=== PATIENT | male | born 1960 | race African-American/Black ===

== ENCOUNTER 2021-10-15 19:01 | Inpatient (IN) | payer SELFPAY ==
[~2021-10-15] VITALS: Ht 172.7 cm; Wt 121.5 kg
[2021-10-15 19:31] LABS: BASO % 0.4 % (0.0-1.0); EOS # 0.1 10^3/uL (0.0-0.5); EOS % 1.2 % (0.0-3.0); HEMATOCRIT 45.4 % (42.0-52.0); HEMOGLOBIN 14.8 g/dl (13.5-17.5); LYMPH # 3.7 10^3/uL (1.5-5.0); LYMPH % 38.6 % (24.0-44.0); MEAN CORPUSCULAR HEMOGLOBIN 26.5 pg (27.0-33.0); MEAN CORPUSCULAR HGB CONC 32.6 g/dl (32.0-36.5); MEAN CORPUSCULAR VOLUME 81.4 fl (80.0-96.0); MONO % 10.5 % (2.0-8.0); NEUTROPHILS # 4.6 10^3/uL (1.5-8.5); NEUTROPHILS % 49.1 % (36.0-66.0); PLATELET COUNT, AUTOMATED 227 10^3/uL (150-450); RED BLOOD COUNT 5.58 10^6/uL (4.30-6.10); WHITE BLOOD COUNT 9.5 10^3/uL (4.0-10.0)
[2021-10-15] MEDS ORDERED: ISOVUE-370 76% 100ML VIAL As Ordered ONE (19:38)
[2021-10-15] MEDS ORDERED: THERTAB52 PO (19:40)
[2021-10-15 19:53] LABS: CK-MB VALUE MASS < 1.0 NG/ML (<3.6); CPK CREATINE PHOSPHOKINASE 35 U/L (39-308); MB/CK RELATIVE INDEX 2.86 (< OR =4)
[2021-10-15 20:14] LABS: ALBUMIN 3.3 GM/DL (3.2-5.2); ALT/SGPT 32 U/L (12-78); BILIRUBIN,TOTAL 0.6 MG/DL (0.2-1.0); BLOOD UREA NITROGEN 17 MG/DL (7-18); CALCIUM LEVEL 8.9 MG/DL (8.8-10.2); CARBON DIOXIDE LEVEL 25 MEQ/L (21-32); CHLORIDE LEVEL 106 MEQ/L (98-107); FREE T4 3.03 NG/DL (0.76-1.46); GLOMERULAR FILTRATION RATE > 60.0 (>49); GLUCOSE, FASTING 98 MG/DL (70-100); LIPASE 50 U/L (73-393); SODIUM LEVEL 140 MEQ/L (136-145); THYROID STIMULATING HORMONE < 0.005 uIU/ML (0.358-3.740); TOTAL PROTEIN 7.1 GM/DL (6.4-8.2)
[2021-10-15] MEDS ORDERED: SIMVASTATIN 40 MG TAB PO ONE (21:30)
[2021-10-15] MEDS ORDERED: ASPIRIN 81 MG CHEW TABLET PO ONE (21:30)
[2021-10-15] MEDS ORDERED: HOME MED LIST COMPLETE! XX SCH (22:55)
[2021-10-16] VITALS (26 sets, daily range): BP systolic 135–193; BP diastolic 65–96; O2SAT 96–99
[2021-10-16] MEDS ORDERED: OLANZapine INTRAMUSCULAR 10MG VIAL IM ONE
[2021-10-16 02:35] LABS: BASO % 0.3 % (0.0-1.0); EOS # 0.1 10^3/uL (0.0-0.5); EOS % 0.6 % (0.0-3.0); HEMATOCRIT 44.1 % (42.0-52.0); HEMOGLOBIN 14.3 g/dl (13.5-17.5); LYMPH # 1.5 10^3/uL (1.5-5.0); LYMPH % 18.7 % (24.0-44.0); MEAN CORPUSCULAR HEMOGLOBIN 26.2 pg (27.0-33.0); MEAN CORPUSCULAR HGB CONC 32.4 g/dl (32.0-36.5); MEAN CORPUSCULAR VOLUME 80.9 fl (80.0-96.0); MONO # 0.7 10^3/uL (0.0-0.8); MONO % 8.7 % (2.0-8.0); NEUTROPHILS # 5.6 10^3/uL (1.5-8.5); NEUTROPHILS % 71.3 % (36.0-66.0); PLATELET COUNT, AUTOMATED 209 10^3/uL (150-450); RED BLOOD COUNT 5.45 10^6/uL (4.30-6.10); WHITE BLOOD COUNT 7.8 10^3/uL (4.0-10.0)
[2021-10-16 02:49] LABS: INR 1.14
[2021-10-16 02:50] LABS: PARTIAL THROMBOPLASTIN TIME 35.5 SECONDS (25.9-37.0)
[2021-10-16 03:05] LABS: CK-MB VALUE MASS < 1.0 NG/ML (<3.6); CPK CREATINE PHOSPHOKINASE 46 U/L (39-308); MB/CK RELATIVE INDEX 2.17 (< OR =4)
[2021-10-16 03:17] LABS: ALBUMIN 3.2 GM/DL (3.2-5.2); ALT/SGPT 27 U/L (12-78); BILIRUBIN,DIRECT 0.2 MG/DL (0.0-0.2); BILIRUBIN,TOTAL 0.7 MG/DL (0.2-1.0); BLOOD UREA NITROGEN 15 MG/DL (7-18); CALCIUM LEVEL 8.9 MG/DL (8.8-10.2); CARBON DIOXIDE LEVEL 26 MEQ/L (21-32); CHLORIDE LEVEL 110 MEQ/L (98-107); CHOLESTEROL LEVEL 124 MG/DL (<200); CHOLESTEROL RISK RATIO 2.638 (<5); CREATININE FOR GFR 0.44 MG/DL (0.70-1.30); GLOMERULAR FILTRATION RATE > 60.0 (>49); GLUCOSE, FASTING 112 MG/DL (70-100); HDL CHOLESTEROL 47 MG/DL (>40); LDL CHOLESTEROL 68 MG/DL (<100); NON-HDL-C 77 MG/DL; POTASSIUM SERUM 4.2 MEQ/L (3.5-5.1); SODIUM LEVEL 143 MEQ/L (136-145); TOTAL PROTEIN 6.9 GM/DL (6.4-8.2); TRIGLYCERIDES LEVEL 43 MG/DL (<150)
[2021-10-16 06:40] LABS: BASO % 0.3 % (0.0-1.0); EOS # 0.1 10^3/uL (0.0-0.5); EOS % 0.8 % (0.0-3.0); HEMATOCRIT 45.4 % (42.0-52.0); HEMOGLOBIN 14.7 g/dl (13.5-17.5); LYMPH # 1.8 10^3/uL (1.5-5.0); LYMPH % 24.7 % (24.0-44.0); MEAN CORPUSCULAR HEMOGLOBIN 26.7 pg (27.0-33.0); MEAN CORPUSCULAR HGB CONC 32.4 g/dl (32.0-36.5); MEAN CORPUSCULAR VOLUME 82.5 fl (80.0-96.0); MONO # 0.8 10^3/uL (0.0-0.8); MONO % 10.6 % (2.0-8.0); NEUTROPHILS # 4.6 10^3/uL (1.5-8.5); NEUTROPHILS % 63.2 % (36.0-66.0); WHITE BLOOD COUNT 7.3 10^3/uL (4.0-10.0)
[2021-10-16 07:35] LABS: PLATELET COUNT, AUTOMATED 180 10^3/uL (150-450)
[2021-10-16 07:42] LABS: ALT/SGPT 29 U/L (12-78); BILIRUBIN,TOTAL 0.7 MG/DL (0.2-1.0); BLOOD UREA NITROGEN 15 MG/DL (7-18); CALCIUM LEVEL 9.5 MG/DL (8.8-10.2); CARBON DIOXIDE LEVEL 23 MEQ/L (21-32); CHLORIDE LEVEL 110 MEQ/L (98-107); CREATININE FOR GFR 0.46 MG/DL (0.70-1.30); GLOMERULAR FILTRATION RATE > 60.0 (>49); GLUCOSE, FASTING 100 MG/DL (70-100); POTASSIUM SERUM 3.7 MEQ/L (3.5-5.1); SODIUM LEVEL 141 MEQ/L (136-145); T UPTAKE 43 % (33-40); TOTAL PROTEIN 7.2 GM/DL (6.4-8.2)
[2021-10-16 07:43] LABS: THYROID STIMULATING HORMONE < 0.005 uIU/ML (0.358-3.740); THYROXINE (T4) > 24.0 UG/DL (4.5-12.0)
[2021-10-16] MEDS: ASPIRIN 300 MG SUPP PR SCH (08:58)
[2021-10-16] MEDS: HEPARIN SOD (PORCINE) 5000UNITS/ML 1ML VIAL/SYRINGE SQ SCH ×2 (08:58→21:13)
[2021-10-16] MEDS ORDERED: ASPIRIN 300 MG SUPP PR SCH (09:00)
[2021-10-16] MEDS ORDERED: ASPIRIN 81 MG CHEW TABLET PO SCH (09:00)
[2021-10-16] MEDS: NS 1,000 ML IV SCH ×2 (10:02→21:13)
[2021-10-16] MEDS ORDERED: ATORVASTATIN 20 MG TAB PO SCH (21:00)
[2021-10-17] VITALS (13 sets, daily range): BP systolic 135–200; BP diastolic 69–125; O2SAT 96–97
[2021-10-17 06:02] LABS: BASO % 0.1 % (0.0-1.0); EOS # 0.1 10^3/uL (0.0-0.5); EOS % 0.6 % (0.0-3.0); HEMATOCRIT 45.1 % (42.0-52.0); HEMOGLOBIN 14.4 g/dl (13.5-17.5); LYMPH # 1.8 10^3/uL (1.5-5.0); LYMPH % 22.7 % (24.0-44.0); MEAN CORPUSCULAR HEMOGLOBIN 25.7 pg (27.0-33.0); MEAN CORPUSCULAR HGB CONC 31.9 g/dl (32.0-36.5); MEAN CORPUSCULAR VOLUME 80.5 fl (80.0-96.0); MONO # 0.8 10^3/uL (0.0-0.8); MONO % 10.4 % (2.0-8.0); NEUTROPHILS # 5.3 10^3/uL (1.5-8.5); PLATELET COUNT, AUTOMATED 230 10^3/uL (150-450)
[2021-10-17 06:32] LABS: ALBUMIN 3.1 GM/DL (3.2-5.2); ALT/SGPT 29 U/L (12-78); BLOOD UREA NITROGEN 12 MG/DL (7-18); CALCIUM LEVEL 9.3 MG/DL (8.8-10.2); CARBON DIOXIDE LEVEL 22 MEQ/L (21-32); CHLORIDE LEVEL 106 MEQ/L (98-107); FREE T3 8.7 PG/ML (2.2-4.0); FREE T4 3.86 NG/DL (0.76-1.46); GLOMERULAR FILTRATION RATE > 60.0 (>49); GLUCOSE, FASTING 97 MG/DL (70-100); POTASSIUM SERUM 4.1 MEQ/L (3.5-5.1); SODIUM LEVEL 138 MEQ/L (136-145); THYROID STIMULATING HORMONE < 0.005 uIU/ML (0.358-3.740)
[2021-10-17 06:44] LABS: HEMOGLOBIN A1c 5.9 %
[2021-10-17] MEDS: NS 1,000 ML IV SCH ×2 (08:07→20:01)
[2021-10-17] MEDS: HEPARIN SOD (PORCINE) 5000UNITS/ML 1ML VIAL/SYRINGE SQ SCH ×2 (09:39→20:04)
[2021-10-17] MEDS: ASPIRIN 300 MG SUPP PR SCH (09:40)
[2021-10-18] VITALS (15 sets, daily range): BP systolic 140–176; BP diastolic 60–92; O2SAT 96–99
[2021-10-18] MEDS: NS 1,000 ML IV SCH ×3 (00:54→15:53)
[2021-10-18 05:54] LABS: BASO % 0.3 % (0.0-1.0); EOS # 0.1 10^3/uL (0.0-0.5); EOS % 0.6 % (0.0-3.0); HEMATOCRIT 46.7 % (42.0-52.0); HEMOGLOBIN 15.5 g/dl (13.5-17.5); LYMPH # 2.3 10^3/uL (1.5-5.0); LYMPH % 26.4 % (24.0-44.0); MEAN CORPUSCULAR HEMOGLOBIN 26.1 pg (27.0-33.0); MEAN CORPUSCULAR HGB CONC 33.2 g/dl (32.0-36.5); MEAN CORPUSCULAR VOLUME 78.8 fl (80.0-96.0); MONO % 11.5 % (2.0-8.0); NEUTROPHILS # 5.3 10^3/uL (1.5-8.5); NEUTROPHILS % 60.7 % (36.0-66.0); PLATELET COUNT, AUTOMATED 233 10^3/uL (150-450); RED BLOOD COUNT 5.93 10^6/uL (4.30-6.10); WHITE BLOOD COUNT 8.7 10^3/uL (4.0-10.0)
[2021-10-18 06:26] LABS: ALBUMIN 3.1 GM/DL (3.2-5.2); ALT/SGPT 29 U/L (12-78); BLOOD UREA NITROGEN 12 MG/DL (7-18); CALCIUM LEVEL 9.8 MG/DL (8.8-10.2); CARBON DIOXIDE LEVEL 24 MEQ/L (21-32); CHLORIDE LEVEL 102 MEQ/L (98-107); CREATININE FOR GFR 0.48 MG/DL (0.70-1.30); GLOMERULAR FILTRATION RATE > 60.0 (>49); GLUCOSE, FASTING 97 MG/DL (70-100); POTASSIUM SERUM 3.9 MEQ/L (3.5-5.1); SODIUM LEVEL 136 MEQ/L (136-145); TOTAL PROTEIN 7.8 GM/DL (6.4-8.2)
[2021-10-18] MEDS ORDERED: VARIBAR NECTAR 40% w/v 240ML SUSP BTL As Ordered ONE (09:51)
[2021-10-18] MEDS ORDERED: VARIBAR PUDDING 40% w/v 230ML TUBE As Ordered ONE (09:51)
[2021-10-18] MEDS ORDERED: E-Z-PAQUE 96% w/w SUSP 176GM BTL As Ordered ONE (09:51)
[2021-10-18] MEDS ORDERED: BARIUM SULFATE 700 MG TABLET (E-Z-DISK) As Ordered ONE (09:52)
[2021-10-18] MEDS: ASPIRIN 300 MG SUPP PR SCH (09:55)
[2021-10-18] MEDS: HEPARIN SOD (PORCINE) 5000UNITS/ML 1ML VIAL/SYRINGE SQ SCH (09:55)
[2021-10-18] MEDS: METOPROLOL TART 25 MG TABLET PO SCH ×2 (15:00→20:36)
[2021-10-18] MEDS: ENOXAPARIN 100MG/1ML SYRINGE (J1650 PER 10MG) SC SCH (20:35)
[2021-10-19] VITALS (25 sets, daily range): BP systolic 151–165; BP diastolic 79–93; O2SAT 89–100
[2021-10-19] MEDS: NS 1,000 ML IV SCH ×4 (02:05→23:48)
[2021-10-19] MEDS ORDERED: OLANZapine 5 MG TAB PO ONE (04:00)
[2021-10-19 06:42] LABS: BASO % 0.4 % (0.0-1.0); EOS # 0.1 10^3/uL (0.0-0.5); EOS % 0.9 % (0.0-3.0); HEMATOCRIT 45.8 % (42.0-52.0); HEMOGLOBIN 14.8 g/dl (13.5-17.5); LYMPH # 2.3 10^3/uL (1.5-5.0); LYMPH % 23.7 % (24.0-44.0); MEAN CORPUSCULAR HEMOGLOBIN 25.9 pg (27.0-33.0); MEAN CORPUSCULAR HGB CONC 32.3 g/dl (32.0-36.5); MEAN CORPUSCULAR VOLUME 80.1 fl (80.0-96.0); MONO # 1.2 10^3/uL (0.0-0.8); MONO % 12.4 % (2.0-8.0); NEUTROPHILS % 62.1 % (36.0-66.0); PLATELET COUNT, AUTOMATED 198 10^3/uL (150-450); RED BLOOD COUNT 5.72 10^6/uL (4.30-6.10); WHITE BLOOD COUNT 9.7 10^3/uL (4.0-10.0)
[2021-10-19 07:19] LABS: ALT/SGPT 28 U/L (12-78); BILIRUBIN,TOTAL 0.9 MG/DL (0.2-1.0); BLOOD UREA NITROGEN 13 MG/DL (7-18); CALCIUM LEVEL 9.6 MG/DL (8.8-10.2); CARBON DIOXIDE LEVEL 24 MEQ/L (21-32); CHLORIDE LEVEL 105 MEQ/L (98-107); CREATININE FOR GFR 0.45 MG/DL (0.70-1.30); GLOMERULAR FILTRATION RATE > 60.0 (>49); GLUCOSE, FASTING 101 MG/DL (70-100); POTASSIUM SERUM 3.9 MEQ/L (3.5-5.1); SODIUM LEVEL 138 MEQ/L (136-145); TOTAL PROTEIN 6.7 GM/DL (6.4-8.2)
[2021-10-19] MEDS: ENOXAPARIN 100MG/1ML SYRINGE (J1650 PER 10MG) SC SCH ×2 (10:15→20:17)
[2021-10-19] MEDS: METOPROLOL TART 25 MG TABLET PO SCH ×2 (10:16→20:17)
[2021-10-19] MEDS: ASPIRIN 81MG ENTERIC TABLET PO SCH (10:18)
[2021-10-20] VITALS (25 sets, daily range): BP systolic 115–146; BP diastolic 67–95; O2SAT 94–97
[2021-10-20] MEDS ORDERED: OLANZapine 2.5MG TABLET PO ONE (04:00)
[2021-10-20 05:12] LABS: BASO # 0.1 10^3/uL (0.0-0.2); BASO % 0.6 % (0.0-1.0); EOS # 0.1 10^3/uL (0.0-0.5); EOS % 1.1 % (0.0-3.0); LYMPH # 2.3 10^3/uL (1.5-5.0); LYMPH % 26.5 % (24.0-44.0); MEAN CORPUSCULAR HEMOGLOBIN 26.1 pg (27.0-33.0); MEAN CORPUSCULAR HGB CONC 32.6 g/dl (32.0-36.5); MONO # 1.1 10^3/uL (0.0-0.8); MONO % 12.5 % (2.0-8.0); NEUTROPHILS # 5.1 10^3/uL (1.5-8.5); NEUTROPHILS % 58.6 % (36.0-66.0); PLATELET COUNT, AUTOMATED 197 10^3/uL (150-450); RED BLOOD COUNT 5.75 10^6/uL (4.30-6.10); WHITE BLOOD COUNT 8.7 10^3/uL (4.0-10.0)
[2021-10-20 05:42] LABS: ALBUMIN 2.8 GM/DL (3.2-5.2); ALT/SGPT 26 U/L (12-78); BILIRUBIN,TOTAL 0.8 MG/DL (0.2-1.0); BLOOD UREA NITROGEN 13 MG/DL (7-18); CALCIUM LEVEL 9.5 MG/DL (8.8-10.2); CARBON DIOXIDE LEVEL 25 MEQ/L (21-32); CHLORIDE LEVEL 108 MEQ/L (98-107); CREATININE FOR GFR 0.39 MG/DL (0.70-1.30); GLOMERULAR FILTRATION RATE > 60.0 (>49); GLUCOSE, FASTING 103 MG/DL (70-100); POTASSIUM SERUM 3.8 MEQ/L (3.5-5.1); SODIUM LEVEL 141 MEQ/L (136-145); TOTAL PROTEIN 6.5 GM/DL (6.4-8.2)
[2021-10-20] MEDS: ASPIRIN 81MG ENTERIC TABLET PO SCH (09:00)
[2021-10-20] MEDS: METOPROLOL TART 25 MG TABLET PO SCH ×2 (09:00→20:36)
[2021-10-20] MEDS: ENOXAPARIN 100MG/1ML SYRINGE (J1650 PER 10MG) SC SCH ×2 (09:00→20:35)
[2021-10-20] MEDS: NS 1,000 ML IV SCH ×2 (10:03→20:29)
[2021-10-20] MEDS ORDERED: METOPROLOL 5 MG/5 ML VIAL IV ONE ×2 (11:10→16:20)
[2021-10-21 00:07] VITALS: BP 136/90
[2021-10-21 04:16] VITALS: BP 162/79
[2021-10-21 05:46] LABS: HEMATOCRIT 43.4 % (42.0-52.0); HEMOGLOBIN 14.2 g/dl (13.5-17.5); MEAN CORPUSCULAR HEMOGLOBIN 26.2 pg (27.0-33.0); MEAN CORPUSCULAR HGB CONC 32.7 g/dl (32.0-36.5); MEAN CORPUSCULAR VOLUME 79.9 fl (80.0-96.0); PLATELET COUNT, AUTOMATED 211 10^3/uL (150-450); RED BLOOD COUNT 5.43 10^6/uL (4.30-6.10); WHITE BLOOD COUNT 9.6 10^3/uL (4.0-10.0)
[2021-10-21 06:04] LABS: BLOOD UREA NITROGEN 11 MG/DL (7-18); CARBON DIOXIDE LEVEL 27 MEQ/L (21-32); CHLORIDE LEVEL 103 MEQ/L (98-107); CREATININE FOR GFR 0.43 MG/DL (0.70-1.30); GLOMERULAR FILTRATION RATE > 60.0 (>49); GLUCOSE, FASTING 94 MG/DL (70-100); POTASSIUM SERUM 3.9 MEQ/L (3.5-5.1); SODIUM LEVEL 139 MEQ/L (136-145)
[2021-10-21] MEDS: NS 1,000 ML IV SCH (06:33)
[2021-10-21 07:43] VITALS: BP 175/79
[2021-10-21] MEDS: ASPIRIN 81MG ENTERIC TABLET PO SCH (08:57)
[2021-10-21] MEDS: METOPROLOL TART 25 MG TABLET PO SCH ×2 (08:57→20:50)
[2021-10-21] MEDS: ENOXAPARIN 100MG/1ML SYRINGE (J1650 PER 10MG) SC SCH (08:57)
[2021-10-21 11:51] VITALS: BP 146/81
[2021-10-21 16:10] VITALS: BP 159/80
[2021-10-21 20:00] VITALS: BP 150/71
[2021-10-21] MEDS: APIXABAN 5 MG TAB (ELIQUIS) PO SCH (20:50)
[2021-10-22] VITALS: BP 150/77
[2021-10-22 04:00] VITALS: BP 115/60
[2021-10-22 04:15] LABS: HEMATOCRIT 44.9 % (42.0-52.0); HEMOGLOBIN 14.7 g/dl (13.5-17.5); MEAN CORPUSCULAR HEMOGLOBIN 26.1 pg (27.0-33.0); MEAN CORPUSCULAR HGB CONC 32.7 g/dl (32.0-36.5); MEAN CORPUSCULAR VOLUME 79.8 fl (80.0-96.0); PLATELET COUNT, AUTOMATED 255 10^3/uL (150-450); RED BLOOD COUNT 5.63 10^6/uL (4.30-6.10); WHITE BLOOD COUNT 9.1 10^3/uL (4.0-10.0)
[2021-10-22 04:56] LABS: BLOOD UREA NITROGEN 13 MG/DL (7-18); CALCIUM LEVEL 9.1 MG/DL (8.8-10.2); CARBON DIOXIDE LEVEL 27 MEQ/L (21-32); CHLORIDE LEVEL 103 MEQ/L (98-107); CREATININE FOR GFR 0.48 MG/DL (0.70-1.30); GLOMERULAR FILTRATION RATE > 60.0 (>49); GLUCOSE, FASTING 111 MG/DL (70-100); POTASSIUM SERUM 4.4 MEQ/L (3.5-5.1); SODIUM LEVEL 137 MEQ/L (136-145)
[2021-10-22 08:00] VITALS: BP 131/85
[2021-10-22 08:13] VITALS: BP 131/85
[2021-10-22] MEDS: METOPROLOL TART 25 MG TABLET PO SCH ×2 (08:15→21:00)
[2021-10-22] MEDS: ASPIRIN 81MG ENTERIC TABLET PO SCH (08:15)
[2021-10-22] MEDS: APIXABAN 5 MG TAB (ELIQUIS) PO SCH ×2 (08:15→21:00)
[2021-10-22] MEDS: CARBAMIDE PEROXIDE 6.5% OTIC SOLN 15ML AU SCH ×2 (12:44→21:00)
[2021-10-22 16:00] VITALS: BP 160/95
[2021-10-22 20:00] VITALS: BP 142/76
[2021-10-23] MEDS ORDERED: OLANZapine INTRAMUSCULAR 10MG VIAL IM ONE
[2021-10-23 04:00] VITALS: BP 121/82
[2021-10-23 08:00] VITALS: BP 137/88
[2021-10-23] MEDS: METOPROLOL TART 25 MG TABLET PO SCH ×3 (09:00→20:51)
[2021-10-23] MEDS: CARBAMIDE PEROXIDE 6.5% OTIC SOLN 15ML AU SCH ×2 (09:23→20:52)
[2021-10-23] MEDS: APIXABAN 5 MG TAB (ELIQUIS) PO SCH ×2 (09:23→20:52)
[2021-10-23] MEDS: ASPIRIN 81MG ENTERIC TABLET PO SCH (09:23)
[2021-10-23 15:30] LABS: HEMATOCRIT 49.3 % (42.0-52.0); MEAN CORPUSCULAR HEMOGLOBIN 25.8 pg (27.0-33.0); MEAN CORPUSCULAR HGB CONC 32.5 g/dl (32.0-36.5); MEAN CORPUSCULAR VOLUME 79.6 fl (80.0-96.0); PLATELET COUNT, AUTOMATED 335 10^3/uL (150-450); RED BLOOD COUNT 6.19 10^6/uL (4.30-6.10); WHITE BLOOD COUNT 9.5 10^3/uL (4.0-10.0)
[2021-10-23 15:57] LABS: BLOOD UREA NITROGEN 18 MG/DL (7-18); CALCIUM LEVEL 9.5 MG/DL (8.8-10.2); CARBON DIOXIDE LEVEL 26 MEQ/L (21-32); CHLORIDE LEVEL 103 MEQ/L (98-107); CREATININE FOR GFR 0.71 MG/DL (0.70-1.30); GLOMERULAR FILTRATION RATE > 60.0 (>49); GLUCOSE, FASTING 182 MG/DL (70-100); POTASSIUM SERUM 4.1 MEQ/L (3.5-5.1); SODIUM LEVEL 135 MEQ/L (136-145)
[2021-10-23 16:00] VITALS: BP_SYST 137; BP_SYST 160; BP_DIAS 88
[2021-10-23 20:00] VITALS: BP 180/87
[2021-10-24] VITALS (7 sets, daily range): BP systolic 131–175; BP diastolic 77–90
[2021-10-24 04:57] LABS: HEMOGLOBIN 15.7 g/dl (13.5-17.5); MEAN CORPUSCULAR HEMOGLOBIN 26.3 pg (27.0-33.0); MEAN CORPUSCULAR VOLUME 82.1 fl (80.0-96.0); PLATELET COUNT, AUTOMATED 308 10^3/uL (150-450); RED BLOOD COUNT 5.97 10^6/uL (4.30-6.10); WHITE BLOOD COUNT 10.8 10^3/uL (4.0-10.0)
[2021-10-24 05:25] LABS: BLOOD UREA NITROGEN 20 MG/DL (7-18); CALCIUM LEVEL 9.8 MG/DL (8.8-10.2); CARBON DIOXIDE LEVEL 27 MEQ/L (21-32); CHLORIDE LEVEL 105 MEQ/L (98-107); CREATININE FOR GFR 0.62 MG/DL (0.70-1.30); GLOMERULAR FILTRATION RATE > 60.0 (>49); GLUCOSE, FASTING 129 MG/DL (70-100); POTASSIUM SERUM 4.5 MEQ/L (3.5-5.1); SODIUM LEVEL 136 MEQ/L (136-145)
[2021-10-24] MEDS: APIXABAN 5 MG TAB (ELIQUIS) PO SCH ×2 (09:39→20:01)
[2021-10-24] MEDS: ASPIRIN 81MG ENTERIC TABLET PO SCH (09:39)
[2021-10-24] MEDS: METOPROLOL TART 25 MG TABLET PO SCH ×2 (09:39→20:01)
[2021-10-24] MEDS: CARBAMIDE PEROXIDE 6.5% OTIC SOLN 15ML AU SCH ×2 (09:40→20:01)
[2021-10-24] MEDS: OLANZapine 10 MG TAB PO ONE (21:00)
[2021-10-24] MEDS ORDERED: OLANZapine INTRAMUSCULAR 10MG VIAL IM ONE (21:15)
[2021-10-25 06:00] VITALS: BP 125/90
[2021-10-25] MEDS: ASPIRIN 81MG ENTERIC TABLET PO SCH (08:58)
[2021-10-25] MEDS: APIXABAN 5 MG TAB (ELIQUIS) PO SCH ×2 (08:59→20:07)
[2021-10-25] MEDS: METOPROLOL TART 25 MG TABLET PO SCH ×2 (09:06→20:07)
[2021-10-25] MEDS: CARBAMIDE PEROXIDE 6.5% OTIC SOLN 15ML AU SCH ×2 (09:08→20:07)
[2021-10-25 13:10] LABS: HEMATOCRIT 48.2 % (42.0-52.0); HEMOGLOBIN 15.9 g/dl (13.5-17.5); MEAN CORPUSCULAR HEMOGLOBIN 26.2 pg (27.0-33.0); MEAN CORPUSCULAR VOLUME 79.5 fl (80.0-96.0); PLATELET COUNT, AUTOMATED 380 10^3/uL (150-450); RED BLOOD COUNT 6.06 10^6/uL (4.30-6.10); WHITE BLOOD COUNT 10.6 10^3/uL (4.0-10.0)
[2021-10-25 13:36] LABS: BLOOD UREA NITROGEN 24 MG/DL (7-18); CALCIUM LEVEL 10.4 MG/DL (8.8-10.2); CARBON DIOXIDE LEVEL 26 MEQ/L (21-32); CHLORIDE LEVEL 106 MEQ/L (98-107); CREATININE FOR GFR 0.56 MG/DL (0.70-1.30); GLOMERULAR FILTRATION RATE > 60.0 (>49); GLUCOSE, FASTING 133 MG/DL (70-100); POTASSIUM SERUM 4.8 MEQ/L (3.5-5.1); SODIUM LEVEL 138 MEQ/L (136-145)
[2021-10-25 14:00] VITALS: BP 143/90
[2021-10-25 19:49] VITALS: BP 146/93
[2021-10-25 23:57] VITALS: BP 145/93
[2021-10-26 03:32] VITALS: BP 146/90
[2021-10-26 08:00] VITALS: BP 142/90
[2021-10-26] MEDS: ASPIRIN 81MG ENTERIC TABLET PO SCH (08:50)
[2021-10-26] MEDS: APIXABAN 5 MG TAB (ELIQUIS) PO SCH (08:50)
[2021-10-26 08:51] VITALS: BP 146/90
[2021-10-26] MEDS: METOPROLOL TART 25 MG TABLET PO SCH (08:51)
[2021-10-26] MEDS ORDERED: ATORVASTATIN 20 MG TAB PO SCH (09:00)
[2021-10-26] MEDS ORDERED: ASPI-551 PO (10:59)
[2021-10-26] MEDS ORDERED: ELIQ5TAB PO (10:59)
[2021-10-26] MEDS ORDERED: METH25TAB PO (10:59)
[2021-10-26] MEDS ORDERED: ATOR1TAB21 PO (10:59)
[2021-10-26] MEDS ORDERED: METO1TAB87 PO (10:59)
[2021-10-26 14:00] VITALS: BP 138/82
== END 2021-10-26 16:10 | DRG 45 ==
LOC: M ED 19:01 → M ED INP 23:30 → M PCU 10-16 00:54 → M MS5PR 10-24 23:24
PROVIDERS: ADMIT Family Medicine; ATTEND General Practice
DX: I63.9 Cerebral infarction, unspecified (principal); E05.01 Thyrotoxicosis with diffuse goiter with thyrotoxic crisis or storm; I48.91 Unspecified atrial fibrillation; Z68.41 Body mass index [BMI] 40.0-44.9, adult; E66.9 Obesity, unspecified; I69.391 Dysphagia following cerebral infarction; Z87.891 Personal history of nicotine dependence

== ENCOUNTER 2021-10-26 13:50 | Inpatient (IN) | payer SELFPAY ==
[~2021-10-26] VITALS: Ht 172.7 cm; Wt 114.1 kg
[~2021-10-26 13:50] MED LIST: ASPI-551 PO; ATOR1TAB21 PO; ELIQ5TAB PO; METH25TAB PO; METO1TAB87 PO; THERTAB52 PO
[2021-10-26 16:14] VITALS: BP 135/92
[2021-10-26] MEDS: MAGIC MOUTHWASH SUSPENSION BTL SSP SCH (17:30)
[2021-10-26 20:00] VITALS: BP_SYST 160; BP_SYST 165; BP_DIAS 90; BP_DIAS 94
[2021-10-26] MEDS: SENNA 8.6 MG TAB (SENOKOT) PO SCH (20:50)
[2021-10-26] MEDS: DOCUSATE SODIUM 100MG CAPSULE PO SCH (20:50)
[2021-10-26] MEDS: METOPROLOL TART 25 MG TABLET PO SCH (20:50)
[2021-10-26] MEDS: REMEDY PHYTOPLEX Z-GUARD PASTE 113GM TUBE (FROM STOREROOM PRODUCT) TOP SCH (20:51)
[2021-10-26] MEDS: APIXABAN 5 MG TAB (ELIQUIS) PO SCH (20:51)
[2021-10-27] MEDS: ACETAMINOPHEN TAB 650MG DOSE (2X325MG) PO PRN ×2 (01:40→07:53)
[2021-10-27] MEDS ORDERED: OLANZapine INTRAMUSCULAR 10MG VIAL IM ONE (02:20)
[2021-10-27 06:00] VITALS: BP 144/90
[2021-10-27 06:57] LABS: BASO # 0.1 10^3/uL (0.0-0.2); BASO % 0.5 % (0.0-1.0); EOS # 0.1 10^3/uL (0.0-0.5); HEMATOCRIT 44.8 % (42.0-52.0); HEMOGLOBIN 14.8 g/dl (13.5-17.5); LYMPH # 3.5 10^3/uL (1.5-5.0); LYMPH % 29.7 % (24.0-44.0); MEAN CORPUSCULAR HEMOGLOBIN 26.2 pg (27.0-33.0); MEAN CORPUSCULAR VOLUME 79.4 fl (80.0-96.0); MONO # 1.4 10^3/uL (0.0-0.8); MONO % 11.7 % (2.0-8.0); NEUTROPHILS # 6.6 10^3/uL (1.5-8.5); NEUTROPHILS % 56.3 % (36.0-66.0); PLATELET COUNT, AUTOMATED 322 10^3/uL (150-450); RED BLOOD COUNT 5.64 10^6/uL (4.30-6.10); WHITE BLOOD COUNT 11.8 10^3/uL (4.0-10.0)
[2021-10-27 07:26] LABS: ALBUMIN 2.8 GM/DL (3.2-5.2); ALT/SGPT 38 U/L (12-78); BILIRUBIN,TOTAL 1.2 MG/DL (0.2-1.0); BLOOD UREA NITROGEN 28 MG/DL (7-18); CALCIUM LEVEL 9.7 MG/DL (8.8-10.2); CARBON DIOXIDE LEVEL 25 MEQ/L (21-32); CHLORIDE LEVEL 104 MEQ/L (98-107); CREATININE FOR GFR 0.67 MG/DL (0.70-1.30); GLOMERULAR FILTRATION RATE > 60.0 (>49); GLUCOSE, FASTING 127 MG/DL (70-100); POTASSIUM SERUM 3.9 MEQ/L (3.5-5.1); SODIUM LEVEL 138 MEQ/L (136-145); TOTAL PROTEIN 6.9 GM/DL (6.4-8.2)
[2021-10-27] MEDS: MULTIVITAMINS/MINERALS THERAP 1 TAB PO SCH (07:47)
[2021-10-27] MEDS: FAMOTIDINE 20 MG TAB PO SCH (07:48)
[2021-10-27] MEDS: METOPROLOL TART 25 MG TABLET PO SCH ×2 (07:48→20:05)
[2021-10-27] MEDS: DOCUSATE SODIUM 100MG CAPSULE PO SCH ×2 (07:48→20:05)
[2021-10-27] MEDS: ASPIRIN 81MG ENTERIC TABLET PO SCH (07:48)
[2021-10-27] MEDS: APIXABAN 5 MG TAB (ELIQUIS) PO SCH ×2 (07:48→20:05)
[2021-10-27] MEDS: REMEDY PHYTOPLEX Z-GUARD PASTE 113GM TUBE (FROM STOREROOM PRODUCT) TOP SCH ×3 (07:49→20:06)
[2021-10-27] MEDS: MAGIC MOUTHWASH SUSPENSION BTL SSP SCH ×3 (07:49→17:26)
[2021-10-27 14:00] VITALS: BP 139/84
[2021-10-27 20:00] VITALS: BP 142/82
[2021-10-27] MEDS: SENNA 8.6 MG TAB (SENOKOT) PO SCH (20:05)
[2021-10-27] MEDS: RAMELTEON 8 MG TAB (ROZEREM) PO PRN (20:05)
[2021-10-28 06:00] VITALS: BP 129/86
[2021-10-28] MEDS: MAGIC MOUTHWASH SUSPENSION BTL SSP SCH ×3 (07:41→17:07)
[2021-10-28] MEDS: ASPIRIN 81MG ENTERIC TABLET PO SCH (07:41)
[2021-10-28] MEDS: MULTIVITAMINS/MINERALS THERAP 1 TAB PO SCH (07:41)
[2021-10-28] MEDS: FAMOTIDINE 20 MG TAB PO SCH (07:42)
[2021-10-28] MEDS: ACETAMINOPHEN TAB 650MG DOSE (2X325MG) PO PRN ×2 (07:43→21:43)
[2021-10-28] MEDS: DOCUSATE SODIUM 100MG CAPSULE PO SCH ×2 (07:43→21:37)
[2021-10-28] MEDS: METOPROLOL TART 25 MG TABLET PO SCH ×2 (07:44→21:38)
[2021-10-28] MEDS: APIXABAN 5 MG TAB (ELIQUIS) PO SCH ×2 (07:45→21:37)
[2021-10-28] MEDS: REMEDY PHYTOPLEX Z-GUARD PASTE 113GM TUBE (FROM STOREROOM PRODUCT) TOP SCH ×3 (07:45→21:00)
[2021-10-28 08:38] LABS: BASO # 0.1 10^3/uL (0.0-0.2); BASO % 0.6 % (0.0-1.0); EOS # 0.1 10^3/uL (0.0-0.5); EOS % 0.8 % (0.0-3.0); HEMATOCRIT 47.2 % (42.0-52.0); HEMOGLOBIN 15.2 g/dl (13.5-17.5); LYMPH # 2.4 10^3/uL (1.5-5.0); LYMPH % 28.7 % (24.0-44.0); MEAN CORPUSCULAR HEMOGLOBIN 26.1 pg (27.0-33.0); MEAN CORPUSCULAR HGB CONC 32.2 g/dl (32.0-36.5); MONO # 0.9 10^3/uL (0.0-0.8); MONO % 10.7 % (2.0-8.0); NEUTROPHILS % 58.7 % (36.0-66.0); PLATELET COUNT, AUTOMATED 352 10^3/uL (150-450); RED BLOOD COUNT 5.83 10^6/uL (4.30-6.10); WHITE BLOOD COUNT 8.5 10^3/uL (4.0-10.0)
[2021-10-28 08:55] LABS: BLOOD UREA NITROGEN 27 MG/DL (7-18); CALCIUM LEVEL 10.1 MG/DL (8.8-10.2); CARBON DIOXIDE LEVEL 25 MEQ/L (21-32); CHLORIDE LEVEL 103 MEQ/L (98-107); CREATININE FOR GFR 0.89 MG/DL (0.70-1.30); GLOMERULAR FILTRATION RATE > 60.0 (>49); GLUCOSE, FASTING 176 MG/DL (70-100); POTASSIUM SERUM 4.5 MEQ/L (3.5-5.1); SODIUM LEVEL 138 MEQ/L (136-145)
[2021-10-28 14:00] VITALS: BP 140/88
[2021-10-28 20:00] VITALS: BP 138/86
[2021-10-28] MEDS: SENNA 8.6 MG TAB (SENOKOT) PO SCH (21:37)
[2021-10-28] MEDS: RAMELTEON 8 MG TAB (ROZEREM) PO PRN (21:43)
[2021-10-29] MEDS ORDERED: hydrOXYzine 50 MG TAB PO ONE (01:45)
[2021-10-29 06:00] VITALS: BP 126/84
[2021-10-29] MEDS: DOCUSATE SODIUM 100MG CAPSULE PO SCH ×2 (08:25→20:24)
[2021-10-29] MEDS: ASPIRIN 81MG ENTERIC TABLET PO SCH (08:25)
[2021-10-29] MEDS: MULTIVITAMINS/MINERALS THERAP 1 TAB PO SCH (08:25)
[2021-10-29] MEDS: FAMOTIDINE 20 MG TAB PO SCH (08:26)
[2021-10-29] MEDS: METOPROLOL TART 25 MG TABLET PO SCH ×2 (08:26→20:37)
[2021-10-29] MEDS: APIXABAN 5 MG TAB (ELIQUIS) PO SCH ×2 (08:26→20:25)
[2021-10-29] MEDS: MAGIC MOUTHWASH SUSPENSION BTL SSP SCH ×3 (08:26→17:20)
[2021-10-29] MEDS: REMEDY PHYTOPLEX Z-GUARD PASTE 113GM TUBE (FROM STOREROOM PRODUCT) TOP SCH ×3 (08:27→20:26)
[2021-10-29 14:00] VITALS: BP 118/84
[2021-10-29 15:50] VITALS: BP 122/88
[2021-10-29 20:00] VITALS: BP 136/78
[2021-10-29] MEDS: RAMELTEON 8 MG TAB (ROZEREM) PO PRN (20:25)
[2021-10-29] MEDS: SENNA 8.6 MG TAB (SENOKOT) PO SCH (20:25)
[2021-10-29] MEDS: ACETAMINOPHEN TAB 650MG DOSE (2X325MG) PO PRN (20:25)
[2021-10-30 06:57] VITALS: BP 155/88
[2021-10-30] MEDS: MAGIC MOUTHWASH SUSPENSION BTL SSP SCH ×3 (07:30→17:16)
[2021-10-30] MEDS: METOPROLOL TART 25 MG TABLET PO SCH ×2 (08:48→21:23)
[2021-10-30] MEDS: MULTIVITAMINS/MINERALS THERAP 1 TAB PO SCH (08:48)
[2021-10-30] MEDS: APIXABAN 5 MG TAB (ELIQUIS) PO SCH ×2 (08:48→21:23)
[2021-10-30] MEDS: DOCUSATE SODIUM 100MG CAPSULE PO SCH ×2 (08:49→21:23)
[2021-10-30] MEDS: ASPIRIN 81MG ENTERIC TABLET PO SCH (08:49)
[2021-10-30] MEDS: FAMOTIDINE 20 MG TAB PO SCH (08:49)
[2021-10-30] MEDS: REMEDY PHYTOPLEX Z-GUARD PASTE 113GM TUBE (FROM STOREROOM PRODUCT) TOP SCH ×3 (08:50→21:00)
[2021-10-30] MEDS: ACETAMINOPHEN TAB 650MG DOSE (2X325MG) PO PRN (17:15)
[2021-10-30 20:00] VITALS: BP 140/90
[2021-10-30] MEDS: SENNA 8.6 MG TAB (SENOKOT) PO SCH (21:23)
[2021-10-31] VITALS (9 sets, daily range): BP systolic 129–146; BP diastolic 70–92
[2021-10-31 06:43] LABS: BASO % 0.3 % (0.0-1.0); EOS # 0.1 10^3/uL (0.0-0.5); EOS % 0.8 % (0.0-3.0); HEMATOCRIT 38.5 % (42.0-52.0); HEMOGLOBIN 12.4 g/dl (13.5-17.5); LYMPH # 2.8 10^3/uL (1.5-5.0); LYMPH % 25.6 % (24.0-44.0); MEAN CORPUSCULAR HEMOGLOBIN 25.7 pg (27.0-33.0); MEAN CORPUSCULAR HGB CONC 32.2 g/dl (32.0-36.5); MEAN CORPUSCULAR VOLUME 79.7 fl (80.0-96.0); MONO # 1.3 10^3/uL (0.0-0.8); MONO % 11.4 % (2.0-8.0); NEUTROPHILS # 6.8 10^3/uL (1.5-8.5); NEUTROPHILS % 61.4 % (36.0-66.0); PLATELET COUNT, AUTOMATED 348 10^3/uL (150-450); RED BLOOD COUNT 4.83 10^6/uL (4.30-6.10)
[2021-10-31 06:57] LABS: BLOOD UREA NITROGEN 32 MG/DL (7-18); CALCIUM LEVEL 9.3 MG/DL (8.8-10.2); CARBON DIOXIDE LEVEL 26 MEQ/L (21-32); CHLORIDE LEVEL 110 MEQ/L (98-107); CREATININE FOR GFR 0.82 MG/DL (0.70-1.30); GLOMERULAR FILTRATION RATE > 60.0 (>49); GLUCOSE, FASTING 128 MG/DL (70-100); POTASSIUM SERUM 4.1 MEQ/L (3.5-5.1); SODIUM LEVEL 142 MEQ/L (136-145)
[2021-10-31] MEDS ORDERED: ISOVUE-370 76% 100ML VIAL As Ordered ONE (07:22)
[2021-10-31] MEDS: NS 1,000 ML IV SCH ×2 (08:29→20:39)
[2021-10-31] MEDS: MULTIVITAMINS/MINERALS THERAP 1 TAB PO SCH (08:30)
[2021-10-31] MEDS: DOCUSATE SODIUM 100MG CAPSULE PO SCH (08:30)
[2021-10-31] MEDS: GASTROGRAFIN SOLUTION 30ML PO SCH ×2 (08:30→08:53)
[2021-10-31] MEDS: FAMOTIDINE 20 MG TAB PO SCH (08:31)
[2021-10-31] MEDS: METOPROLOL TART 25 MG TABLET PO SCH (09:00)
[2021-10-31] MEDS ORDERED: SUCRALFATE 1 GM TAB PO SCH (12:00)
[2021-10-31] MEDS ORDERED: ACETAMINOPHEN TAB 650MG DOSE (2X325MG) PO ONE (12:00)
[2021-10-31] MEDS ORDERED: diphenhydrAMINE 25MG CAP PO ONE (12:00)
[2021-10-31] MEDS ORDERED: ACETAMINOPHEN *IV* 650 MG in IV 1 EA IV ONE (13:00)
[2021-10-31] MEDS ORDERED: diphenhydrAMINE 50MG/ML VIAL (J1200) IM ONE (13:15)
[2021-10-31 13:31] LABS: HEMATOCRIT 37.2 % (42.0-52.0)
[2021-10-31] MEDS: PANTOPRAZOLE 40MG VIAL IV SCH ×2 (13:31→20:39)
[2021-10-31] MEDS ORDERED: GOLYTELY SOLN 4000 ML BTL PO ONE (17:35)
[2021-10-31 18:49] LABS: HEMATOCRIT 38.5 % (42.0-52.0); HEMOGLOBIN 12.4 g/dl (13.5-17.5)
[2021-10-31] MEDS ORDERED: BISACODYL 5 MG TAB PO ONE (19:00)
[2021-10-31 19:09] LABS: INR 1.54; PROTHROMBIN TIME 18.9 SECONDS (12.7-14.5)
[2021-10-31] MEDS ORDERED: FAMOTIDINE 20 MG TAB PO SCH (21:00)
[2021-11-01 02:29] LABS: HEMATOCRIT 38.1 % (42.0-52.0); HEMOGLOBIN 12.7 g/dl (13.5-17.5)
[2021-11-01 06:00] VITALS: BP 145/88
[2021-11-01 06:50] LABS: BASO # 0.1 10^3/uL (0.0-0.2); BASO % 0.4 % (0.0-1.0); EOS # 0.1 10^3/uL (0.0-0.5); EOS % 0.7 % (0.0-3.0); HEMATOCRIT 37.1 % (42.0-52.0); HEMOGLOBIN 11.9 g/dl (13.5-17.5); LYMPH # 2.3 10^3/uL (1.5-5.0); LYMPH % 17.9 % (24.0-44.0); MEAN CORPUSCULAR HGB CONC 32.1 g/dl (32.0-36.5); MONO # 1.2 10^3/uL (0.0-0.8); MONO % 9.4 % (2.0-8.0); NEUTROPHILS # 8.9 10^3/uL (1.5-8.5); PLATELET COUNT, AUTOMATED 282 10^3/uL (150-450); RED BLOOD COUNT 4.58 10^6/uL (4.30-6.10); WHITE BLOOD COUNT 12.6 10^3/uL (4.0-10.0)
[2021-11-01 07:05] LABS: BLOOD UREA NITROGEN 24 MG/DL (7-18); CALCIUM LEVEL 9.3 MG/DL (8.8-10.2); CARBON DIOXIDE LEVEL 24 MEQ/L (21-32); CHLORIDE LEVEL 113 MEQ/L (98-107); CREATININE FOR GFR 0.63 MG/DL (0.70-1.30); GLOMERULAR FILTRATION RATE > 60.0 (>49); GLUCOSE, FASTING 120 MG/DL (70-100); POTASSIUM SERUM 4.3 MEQ/L (3.5-5.1); SODIUM LEVEL 145 MEQ/L (136-145)
[2021-11-01] MEDS: PANTOPRAZOLE 40MG VIAL IV SCH (08:27)
[2021-11-01] MEDS: NS 1,000 ML IV SCH (13:56)
[2021-11-01 17:00] VITALS: BP 133/69
[2021-11-01] MEDS ORDERED: SUCRALFATE SUSP 1GM/10ML UD PO SCH (18:00)
[2021-11-01] MEDS ORDERED: PANTOPRAZOLE SODIUM 40 MG in D5W 50 ML IV SCH (22:00)
[2021-11-01 22:39] VITALS: BP 137/97
[2021-11-02] MEDS ORDERED: ASPI-161 PO (02:29)
[2021-11-02] MEDS ORDERED: METO25TA4 PO (02:29)
[2021-11-02] MEDS ORDERED: METH25TAB PO (02:29)
[2021-11-02] MEDS ORDERED: ELIQ5TAB PO (02:29)
[2021-11-03] MEDS ORDERED: METO1TAB87 PO (10:20)
[2021-11-03] MEDS ORDERED: PANT40TA29 PO (10:20)
[2021-11-03 14:00] VITALS: BP 142/72
[2021-11-03] MEDS ORDERED: HOME MED LIST COMPLETE! XX SCH (16:35)
[2021-11-03] MEDS: METOPROLOL TART 25 MG TABLET PO SCH ×2 (18:03→23:19)
[2021-11-03] MEDS: SUCRALFATE 1 GM TAB PO SCH ×2 (18:03→20:52)
[2021-11-03 19:49] VITALS: BP 138/88
[2021-11-03] MEDS: PANTOPRAZOLE 40MG VIAL IV SCH (20:52)
[2021-11-04 04:47] VITALS: BP 137/71
[2021-11-04] MEDS: METOPROLOL TART 25 MG TABLET PO SCH ×3 (05:02→17:36)
[2021-11-04 08:04] LABS: BASO % 0.3 % (0.0-1.0); EOS # 0.2 10^3/uL (0.0-0.5); EOS % 2.6 % (0.0-3.0); HEMATOCRIT 33.7 % (42.0-52.0); HEMOGLOBIN 10.8 g/dl (13.5-17.5); LYMPH # 1.8 10^3/uL (1.5-5.0); LYMPH % 28.4 % (24.0-44.0); MEAN CORPUSCULAR HEMOGLOBIN 26.5 pg (27.0-33.0); MEAN CORPUSCULAR VOLUME 82.6 fl (80.0-96.0); MONO # 0.7 10^3/uL (0.0-0.8); MONO % 10.5 % (2.0-8.0); NEUTROPHILS # 3.6 10^3/uL (1.5-8.5); NEUTROPHILS % 57.7 % (36.0-66.0); PLATELET COUNT, AUTOMATED 255 10^3/uL (150-450); RED BLOOD COUNT 4.08 10^6/uL (4.30-6.10); WHITE BLOOD COUNT 6.2 10^3/uL (4.0-10.0)
[2021-11-04 08:34] LABS: BLOOD UREA NITROGEN 8 MG/DL (7-18); CALCIUM LEVEL 8.8 MG/DL (8.8-10.2); CARBON DIOXIDE LEVEL 28 MEQ/L (21-32); CHLORIDE LEVEL 109 MEQ/L (98-107); CREATININE FOR GFR 0.54 MG/DL (0.70-1.30); GLOMERULAR FILTRATION RATE > 60.0 (>49); GLUCOSE, FASTING 112 MG/DL (70-100); POTASSIUM SERUM 3.7 MEQ/L (3.5-5.1); SODIUM LEVEL 145 MEQ/L (136-145)
[2021-11-04] MEDS: SUCRALFATE 1 GM TAB PO SCH ×4 (09:15→22:13)
[2021-11-04] MEDS: APIXABAN 5 MG TAB (ELIQUIS) PO SCH ×2 (09:15→22:13)
[2021-11-04] MEDS: PANTOPRAZOLE 40MG VIAL IV SCH ×3 (09:29→22:13)
[2021-11-04 14:00] VITALS: BP 128/74
[2021-11-04] MEDS: FUROSEMIDE 20 MG TAB PO SCH (14:57)
[2021-11-04] MEDS: DICLOFENAC EPOLAMINE 1.3 % PATCH TOP SCH (14:57)
[2021-11-04 20:00] VITALS: BP 122/70
[2021-11-04] MEDS: PANTOPRAZOLE 40MG TAB (PROTONIX) PO SCH (22:44)
[2021-11-05] MEDS: DICLOFENAC EPOLAMINE 1.3 % PATCH TOP SCH ×2 (02:30→16:38)
[2021-11-05] MEDS: METOPROLOL TART 25 MG TABLET PO SCH ×5 (05:34→23:58)
[2021-11-05 06:00] VITALS: BP 145/76
[2021-11-05] MEDS: APIXABAN 5 MG TAB (ELIQUIS) PO SCH ×2 (08:35→21:45)
[2021-11-05] MEDS: SUCRALFATE 1 GM TAB PO SCH ×4 (08:35→21:45)
[2021-11-05] MEDS: FUROSEMIDE 20 MG TAB PO SCH (08:35)
[2021-11-05] MEDS: PANTOPRAZOLE 40MG TAB (PROTONIX) PO SCH ×2 (08:36→21:45)
[2021-11-05 12:04] VITALS: BP 124/76
[2021-11-05 14:00] VITALS: BP 133/76
[2021-11-05 17:36] VITALS: BP 138/78
[2021-11-05 20:00] VITALS: BP 114/53
[2021-11-06] MEDS: DICLOFENAC EPOLAMINE 1.3 % PATCH TOP SCH ×2 (05:29→17:31)
[2021-11-06] MEDS: METOPROLOL TART 25 MG TABLET PO SCH ×4 (05:29→23:07)
[2021-11-06 06:00] VITALS: BP 123/72
[2021-11-06 08:28] LABS: HEMATOCRIT 33.5 % (42.0-52.0); HEMOGLOBIN 10.7 g/dl (13.5-17.5)
[2021-11-06] MEDS: APIXABAN 5 MG TAB (ELIQUIS) PO SCH ×2 (08:34→22:58)
[2021-11-06] MEDS: SUCRALFATE 1 GM TAB PO SCH ×4 (08:34→22:58)
[2021-11-06] MEDS: PANTOPRAZOLE 40MG TAB (PROTONIX) PO SCH ×2 (08:35→22:58)
[2021-11-06] MEDS: FUROSEMIDE 20 MG TAB PO SCH (08:35)
[2021-11-06 11:43] VITALS: BP 130/72
[2021-11-06 17:29] VITALS: BP 127/75
[2021-11-06] MEDS ORDERED: ACETAMINOPHEN TAB 650MG DOSE (2X325MG) PO PRN (18:25)
[2021-11-06 20:01] VITALS: BP 123/57
[2021-11-07 05:35] VITALS: BP 130/72
[2021-11-07] MEDS: METOPROLOL TART 25 MG TABLET PO SCH ×4 (05:47→23:03)
[2021-11-07] MEDS: DICLOFENAC EPOLAMINE 1.3 % PATCH TOP SCH ×2 (05:48→17:37)
[2021-11-07 07:48] LABS: BASO % 0.7 % (0.0-1.0); EOS # 0.2 10^3/uL (0.0-0.5); EOS % 2.8 % (0.0-3.0); HEMATOCRIT 35.5 % (42.0-52.0); HEMOGLOBIN 11.3 g/dl (13.5-17.5); LYMPH # 2.4 10^3/uL (1.5-5.0); LYMPH % 44.4 % (24.0-44.0); MEAN CORPUSCULAR HEMOGLOBIN 26.2 pg (27.0-33.0); MEAN CORPUSCULAR HGB CONC 31.8 g/dl (32.0-36.5); MEAN CORPUSCULAR VOLUME 82.2 fl (80.0-96.0); MONO # 0.6 10^3/uL (0.0-0.8); MONO % 10.4 % (2.0-8.0); NEUTROPHILS # 2.2 10^3/uL (1.5-8.5); PLATELET COUNT, AUTOMATED 270 10^3/uL (150-450); RED BLOOD COUNT 4.32 10^6/uL (4.30-6.10); WHITE BLOOD COUNT 5.4 10^3/uL (4.0-10.0)
[2021-11-07 08:02] LABS: BLOOD UREA NITROGEN 11 MG/DL (7-18); CALCIUM LEVEL 9.1 MG/DL (8.8-10.2); CARBON DIOXIDE LEVEL 29 MEQ/L (21-32); CHLORIDE LEVEL 110 MEQ/L (98-107); CREATININE FOR GFR 0.65 MG/DL (0.70-1.30); GLOMERULAR FILTRATION RATE > 60.0 (>49); GLUCOSE, FASTING 97 MG/DL (70-100); POTASSIUM SERUM 3.4 MEQ/L (3.5-5.1); SODIUM LEVEL 145 MEQ/L (136-145)
[2021-11-07] MEDS: FUROSEMIDE 20 MG TAB PO SCH (09:31)
[2021-11-07] MEDS: PANTOPRAZOLE 40MG TAB (PROTONIX) PO SCH ×2 (09:31→20:02)
[2021-11-07] MEDS: APIXABAN 5 MG TAB (ELIQUIS) PO SCH ×2 (09:31→20:02)
[2021-11-07] MEDS: SUCRALFATE 1 GM TAB PO SCH ×4 (09:31→20:02)
[2021-11-07] MEDS ORDERED: POTASSIUM CHLORIDE 10MEQ SR TABLET PO ONE (11:45)
[2021-11-07 13:00] VITALS: BP 150/71
[2021-11-07 20:00] VITALS: BP 134/62
[2021-11-08 05:56] VITALS: BP 133/77
[2021-11-08] MEDS: DICLOFENAC EPOLAMINE 1.3 % PATCH TOP SCH ×2 (05:59→17:54)
[2021-11-08] MEDS: METOPROLOL TART 25 MG TABLET PO SCH ×3 (05:59→17:55)
[2021-11-08 07:06] LABS: BLOOD UREA NITROGEN 8 MG/DL (7-18); CALCIUM LEVEL 8.6 MG/DL (8.8-10.2); CARBON DIOXIDE LEVEL 29 MEQ/L (21-32); CHLORIDE LEVEL 110 MEQ/L (98-107); CREATININE FOR GFR 0.68 MG/DL (0.70-1.30); GLOMERULAR FILTRATION RATE > 60.0 (>49); GLUCOSE, FASTING 93 MG/DL (70-100); SODIUM LEVEL 142 MEQ/L (136-145)
[2021-11-08] MEDS: APIXABAN 5 MG TAB (ELIQUIS) PO SCH ×2 (08:41→20:24)
[2021-11-08] MEDS: PANTOPRAZOLE 40MG TAB (PROTONIX) PO SCH ×2 (08:41→20:24)
[2021-11-08] MEDS: SUCRALFATE 1 GM TAB PO SCH ×4 (08:41→20:24)
[2021-11-08] MEDS: FUROSEMIDE 20 MG TAB PO SCH (08:41)
[2021-11-08 14:14] VITALS: BP 135/78
[2021-11-08 20:00] VITALS: BP 123/77
[2021-11-09 06:00] VITALS: BP 136/62
[2021-11-09] MEDS: METOPROLOL TART 25 MG TABLET PO SCH ×5 (06:06→23:44)
[2021-11-09] MEDS: DICLOFENAC EPOLAMINE 1.3 % PATCH TOP SCH ×3 (06:06→17:53)
[2021-11-09] MEDS: SUCRALFATE 1 GM TAB PO SCH ×4 (07:34→20:09)
[2021-11-09] MEDS: PANTOPRAZOLE 40MG TAB (PROTONIX) PO SCH ×2 (07:34→20:09)
[2021-11-09] MEDS: APIXABAN 5 MG TAB (ELIQUIS) PO SCH ×2 (07:34→20:09)
[2021-11-09] MEDS: FUROSEMIDE 20 MG TAB PO SCH (07:34)
[2021-11-09 08:02] LABS: BASO # 0.1 10^3/uL (0.0-0.2); BASO % 0.9 % (0.0-1.0); EOS # 0.2 10^3/uL (0.0-0.5); EOS % 2.7 % (0.0-3.0); HEMATOCRIT 35.2 % (42.0-52.0); HEMOGLOBIN 11.2 g/dl (13.5-17.5); LYMPH # 1.8 10^3/uL (1.5-5.0); LYMPH % 31.4 % (24.0-44.0); MEAN CORPUSCULAR HEMOGLOBIN 26.4 pg (27.0-33.0); MEAN CORPUSCULAR HGB CONC 31.8 g/dl (32.0-36.5); MONO # 0.6 10^3/uL (0.0-0.8); MONO % 9.8 % (2.0-8.0); NEUTROPHILS # 3.1 10^3/uL (1.5-8.5); NEUTROPHILS % 54.7 % (36.0-66.0); PLATELET COUNT, AUTOMATED 272 10^3/uL (150-450); RED BLOOD COUNT 4.24 10^6/uL (4.30-6.10); WHITE BLOOD COUNT 5.6 10^3/uL (4.0-10.0)
[2021-11-09 08:29] LABS: BLOOD UREA NITROGEN 9 MG/DL (7-18); CALCIUM LEVEL 9.4 MG/DL (8.8-10.2); CARBON DIOXIDE LEVEL 26 MEQ/L (21-32); CHLORIDE LEVEL 108 MEQ/L (98-107); CREATININE FOR GFR 0.58 MG/DL (0.70-1.30); GLOMERULAR FILTRATION RATE > 60.0 (>49); GLUCOSE, FASTING 100 MG/DL (70-100); POTASSIUM SERUM 3.6 MEQ/L (3.5-5.1); SODIUM LEVEL 142 MEQ/L (136-145)
[2021-11-09 11:29] VITALS: BP 123/78
[2021-11-09 13:44] VITALS: BP 137/73
[2021-11-09 17:52] VITALS: BP 140/71
[2021-11-09 20:00] VITALS: BP 143/69
[2021-11-10] MEDS: DICLOFENAC EPOLAMINE 1.3 % PATCH TOP SCH ×2 (05:24→17:41)
[2021-11-10] MEDS: METOPROLOL TART 25 MG TABLET PO SCH ×4 (05:24→23:52)
[2021-11-10 06:00] VITALS: BP 118/76
[2021-11-10] MEDS: APIXABAN 5 MG TAB (ELIQUIS) PO SCH ×2 (08:47→20:30)
[2021-11-10] MEDS: PANTOPRAZOLE 40MG TAB (PROTONIX) PO SCH ×2 (08:48→20:30)
[2021-11-10] MEDS: FUROSEMIDE 20 MG TAB PO SCH (08:48)
[2021-11-10] MEDS: SUCRALFATE 1 GM TAB PO SCH ×4 (08:48→20:30)
[2021-11-10 14:00] VITALS: BP 143/73
[2021-11-10] MEDS ORDERED: METH25TAB PO (14:08)
[2021-11-10] MEDS ORDERED: METO1TAB87 PO (14:08)
[2021-11-10] MEDS ORDERED: ELIQ5TAB PO (14:08)
[2021-11-10] MEDS ORDERED: SUCR1TA PO (14:08)
[2021-11-10] MEDS ORDERED: PANT40TA29 PO (14:08)
[2021-11-10 20:00] VITALS: BP 125/57
[2021-11-11] MEDS: DICLOFENAC EPOLAMINE 1.3 % PATCH TOP SCH (05:23)
[2021-11-11 05:38] VITALS: BP 128/63
[2021-11-11] MEDS: METOPROLOL TART 25 MG TABLET PO SCH (05:38)
[2021-11-11 06:00] VITALS: BP 128/63
[2021-11-11] MEDS: PANTOPRAZOLE 40MG TAB (PROTONIX) PO SCH (09:15)
[2021-11-11] MEDS: SUCRALFATE 1 GM TAB PO SCH (09:15)
[2021-11-11] MEDS: FUROSEMIDE 20 MG TAB PO SCH (09:15)
== END 2021-11-11 10:15 | disposition home or self-care (01) | DRG 58 ==
LOC: M PM&R 16:33 → M MSPAV 11-01 21:47 → UNDODISIN 11-01 23:39 → M PM&R 11-03 13:24
PROVIDERS: ADMIT Physical Medicine & Rehabilitation; ATTEND Physical Medicine & Rehabilitation
PROC: 30233N1 Transfusion of Nonautologous Red Blood Cells into Peripheral Vein, Percutaneous Approach (ICD-10-PCS; principal; 2021-10-31)
DX: I69.391 Dysphagia following cerebral infarction (principal); I50.32 Chronic diastolic (congestive) heart failure; E05.01 Thyrotoxicosis with diffuse goiter with thyrotoxic crisis or storm; I48.91 Unspecified atrial fibrillation; Z68.41 Body mass index [BMI] 40.0-44.9, adult; K92.2 Gastrointestinal hemorrhage, unspecified; Z79.01 Long term (current) use of anticoagulants; E66.9 Obesity, unspecified; Z79.899 Other long term (current) drug therapy; Z79.82 Long term (current) use of aspirin; Z87.891 Personal history of nicotine dependence; R29.6 Repeated falls

== ENCOUNTER 2021-11-01 22:32 | Inpatient (IN) | payer SELFPAY ==
[~2021-11-01] VITALS: Ht 172.7 cm; Wt 122.2 kg
[~2021-11-01 22:32] MED LIST changes: +LIDOCAINE 2% 100MG/5ML SDV (FOR ANES.) As Ordered ONE; +propofoL 500 MG/50 ML VIAL As Ordered ONE
[2021-11-01 22:35] VITALS: BP 137/97
[2021-11-01 23:43] VITALS: BP 122/58
[2021-11-02] VITALS (7 sets, daily range): BP systolic 116–146; BP diastolic 62–99
[2021-11-02 00:52] LABS: HEMATOCRIT 31.4 % (42.0-52.0); HEMOGLOBIN 10.1 g/dl (13.5-17.5)
[2021-11-02 00:52] LABS: CK-MB VALUE MASS < 1.0 NG/ML (<3.6); CPK CREATINE PHOSPHOKINASE 20 U/L (39-308)
[2021-11-02] MEDS: PANTOPRAZOLE SODIUM 40 MG in D5W MINI-BAG PLUS 50 ML IV SCH ×2 (01:16→06:18)
[2021-11-02] MEDS ORDERED: ASPI-161 PO (02:29)
[2021-11-02] MEDS ORDERED: METH25TAB PO (02:29)
[2021-11-02] MEDS ORDERED: METO25TA4 PO (02:29)
[2021-11-02] MEDS ORDERED: ELIQ5TAB PO (02:29)
[2021-11-02] MEDS ORDERED: HOME MED LIST COMPLETE! XX SCH (02:30)
[2021-11-02] MEDS ORDERED: ACETAMINOPHEN *IV* 1,000 MG in IV 1 EA IV ONE (03:00)
[2021-11-02] MEDS ORDERED: NS 500 ML IV ONE (05:10)
[2021-11-02] MEDS: NS 1,000 ML IV SCH ×2 (05:22→06:54)
[2021-11-02] MEDS ORDERED: METOPROLOL 5 MG/5 ML VIAL IV ONE (06:30)
[2021-11-02 08:45] LABS: HEMATOCRIT 33.5 % (42.0-52.0); HEMOGLOBIN 10.6 g/dl (13.5-17.5)
[2021-11-02 08:56] LABS: INR 1.53; PROTHROMBIN TIME 18.8 SECONDS (12.7-14.5)
[2021-11-02 08:57] LABS: PARTIAL THROMBOPLASTIN TIME 40.2 SECONDS (25.9-37.0)
[2021-11-02] MEDS ORDERED: METOPROLOL TART 25 MG TABLET PO SCH ×2 (09:00→14:00)
[2021-11-02] MEDS: PANTOPRAZOLE 40MG VIAL IV SCH ×2 (09:06→20:20)
[2021-11-02 13:58] LABS: HEMATOCRIT 33.8 % (42.0-52.0); HEMOGLOBIN 10.5 g/dl (13.5-17.5)
[2021-11-02] MEDS: METOPROLOL TART 25 MG TABLET PO SCH (18:53)
[2021-11-02 18:55] LABS: HEMATOCRIT 36.9 % (42.0-52.0); HEMOGLOBIN 11.7 g/dl (13.5-17.5)
[2021-11-03 00:06] VITALS: BP 135/60
[2021-11-03 00:14] LABS: HEMATOCRIT 33.1 % (42.0-52.0); HEMOGLOBIN 10.4 g/dl (13.5-17.5)
[2021-11-03] MEDS: METOPROLOL TART 25 MG TABLET PO SCH ×3 (00:36→11:32)
[2021-11-03 04:36] VITALS: BP 133/63
[2021-11-03 07:25] LABS: HEMATOCRIT 34.9 % (42.0-52.0); HEMOGLOBIN 11.1 g/dl (13.5-17.5)
[2021-11-03 07:59] LABS: ALBUMIN 2.7 GM/DL (3.2-5.2); ALT/SGPT 37 U/L (12-78); BILIRUBIN,TOTAL 0.7 MG/DL (0.2-1.0); BLOOD UREA NITROGEN 10 MG/DL (7-18); CARBON DIOXIDE LEVEL 26 MEQ/L (21-32); CHLORIDE LEVEL 108 MEQ/L (98-107); CREATININE FOR GFR 0.55 MG/DL (0.70-1.30); GLOMERULAR FILTRATION RATE > 60.0 (>49); GLUCOSE, FASTING 78 MG/DL (70-100); POTASSIUM SERUM 3.8 MEQ/L (3.5-5.1); SODIUM LEVEL 142 MEQ/L (136-145); TOTAL PROTEIN 6.2 GM/DL (6.4-8.2)
[2021-11-03 08:56] VITALS: BP 124/62
[2021-11-03] MEDS: PANTOPRAZOLE 40MG VIAL IV SCH (09:05)
[2021-11-03] MEDS ORDERED: PANT40TA29 PO (10:20)
[2021-11-03] MEDS ORDERED: METO1TAB87 PO (10:20)
[2021-11-03 11:32] VITALS: BP 124/71
[2021-11-03 12:23] VITALS: BP 108/58
== END 2021-11-03 13:19 | DRG 220 ==
LOC: M MSPAV 22:32 → M SDC 22:32 → M ED INP 11-02 00:51 → M MSPAV 11-02 00:52 → M PCU 11-02 06:26 → OBSVTOIN 11-02 09:54
PROVIDERS: ADMIT Internal Medicine; ATTEND Internal Medicine
PROC: 0DQ98ZZ Repair Duodenum, Via Natural or Artificial Opening Endoscopic (ICD-10-PCS; principal; 2021-11-01 14:30)
DX: K26.9 Duodenal ulcer, unspecified as acute or chronic, without hemorrhage or perforation (principal); I69.354 Hemiplegia and hemiparesis following cerebral infarction affecting left non-dominant side; I48.91 Unspecified atrial fibrillation; I69.321 Dysphasia following cerebral infarction; Z79.899 Other long term (current) drug therapy; Z79.82 Long term (current) use of aspirin; K31.9 Disease of stomach and duodenum, unspecified

== ENCOUNTER → 2021-12-15 | Outpatient (RCR) | payer MEDICAID, SELFPAY ==
[~2021-12-15] MED LIST changes: +ASPI-161 PO; -LIDOCAINE 2% 100MG/5ML SDV (FOR ANES.) As Ordered ONE; +METO25TA4 PO; +PANT40TA29 PO; +SUCR1TA PO; -propofoL 500 MG/50 ML VIAL As Ordered ONE
== END ==
LOC: M PT 11-16 12:35 → M ST 11-29 13:55 → M PT 11-30 08:17 → M ST 12-07 13:18 → M PT 12-07 13:18 → M ST 12-08 07:41 → M PT 12-13 11:00 → M ST 07:42
PROVIDERS: ATTEND Internal Medicine
DX: I63.9 Cerebral infarction, unspecified (principal)

== ENCOUNTER 2022-01-12 08:00 | Outpatient (RCR) | payer MEDICAID, SELFPAY | END 2022-01-15 | LOC: M PT 08:00 → M ST 08:00 | PROVIDERS: ATTEND Internal Medicine | DX: I63.9 Cerebral infarction, unspecified (principal); R47.01 Aphasia; R26.9 Unspecified abnormalities of gait and mobility ==

== ENCOUNTER 2022-02-09 07:54 | Outpatient (RCR) | payer MEDICAID, SELFPAY | END 2022-02-15 | LOC: M ST 07:54 | PROVIDERS: ATTEND Internal Medicine | DX: I63.9 Cerebral infarction, unspecified (principal) ==

== ENCOUNTER 2022-03-16 07:59 | Outpatient (RCR) | payer MEDICAID | END 2022-03-17 | LOC: M ST 07:59 | PROVIDERS: ATTEND Internal Medicine | DX: I69.928 Other speech and language deficits following unspecified cerebrovascular disease (principal); I63.9 Cerebral infarction, unspecified ==

== ENCOUNTER 2022-04-13 07:02 | Outpatient (RCR) | payer MEDICAID, SELFPAY ==
[2022-04-20] MEDS ORDERED: GABA-1171 (14:14)
[2022-04-20] MEDS ORDERED: ATOR1TAB19 (14:14)
== END 2022-04-17 23:59 | disposition home or self-care (01) ==
LOC: M ST 07:02 → M PT 04-18 08:21
PROVIDERS: ATTEND Internal Medicine
DX: I63.9 Cerebral infarction, unspecified (principal); I69.928 Other speech and language deficits following unspecified cerebrovascular disease

== ENCOUNTER → 2022-04-21 | Outpatient (CLI) | payer MEDICAID ==
[~2022-04-21] MED LIST changes: +ATOR1TAB19; +GABA-1171
[2022-04-21 17:18] LABS: BASO % 0.4 % (0.0-1.0); EOS # 0.1 10^3/uL (0.0-0.5); EOS % 1.7 % (0.0-3.0); HEMATOCRIT 41.6 % (42.0-52.0); HEMOGLOBIN 12.8 g/dl (13.5-17.5); LYMPH % 36.6 % (24.0-44.0); MEAN CORPUSCULAR HEMOGLOBIN 24.7 pg (27.0-33.0); MEAN CORPUSCULAR HGB CONC 30.8 g/dl (32.0-36.5); MEAN CORPUSCULAR VOLUME 80.2 fl (80.0-96.0); MONO # 0.4 10^3/uL (0.0-0.8); MONO % 6.8 % (2.0-8.0); NEUTROPHILS # 2.9 10^3/uL (1.5-8.5); NEUTROPHILS % 53.9 % (36.0-66.0); PLATELET COUNT, AUTOMATED 215 10^3/uL (150-450); RED BLOOD COUNT 5.19 10^6/uL (4.30-6.10); WHITE BLOOD COUNT 5.4 10^3/uL (4.0-10.0)
[2022-04-21 17:48] LABS: ALBUMIN 3.2 GM/DL (3.2-5.2); ALT/SGPT 29 U/L (12-78); BILIRUBIN,TOTAL 0.8 MG/DL (0.2-1.0); BLOOD UREA NITROGEN 13 MG/DL (7-18); CALCIUM LEVEL 8.4 MG/DL (8.8-10.2); CARBON DIOXIDE LEVEL 29 MEQ/L (21-32); CHLORIDE LEVEL 107 MEQ/L (98-107); CREATININE FOR GFR 0.77 MG/DL (0.70-1.30); FREE T3 4.3 PG/ML (2.2-4.0); FREE T4 1.33 NG/DL (0.76-1.46); GLOMERULAR FILTRATION RATE > 60.0 (>49); GLUCOSE, FASTING 155 MG/DL (70-100); POTASSIUM SERUM 3.9 MEQ/L (3.5-5.1); SODIUM LEVEL 140 MEQ/L (136-145); THYROID STIMULATING HORMONE < 0.005 uIU/ML (0.358-3.740); TOTAL PROTEIN 6.9 GM/DL (6.4-8.2)
== END ==
LOC: M WUC 14:15
PROVIDERS: ATTEND Internal Medicine
DX: E05.90 Thyrotoxicosis, unspecified without thyrotoxic crisis or storm (principal)

== ENCOUNTER → 2022-04-24 | Outpatient (CLI) | payer MEDICAID, SELFPAY | LOC: M LABSMTC 10:11 | PROVIDERS: ATTEND Anesthesiology | DX: Z01.812 Encounter for preprocedural laboratory examination (principal); Z11.52 Encounter for screening for COVID-19 ==

== ENCOUNTER 2022-04-28 11:42 | Day surgery (SDC) | payer MEDICAID ==
[~2022-04-28] VITALS: Ht 170.2 cm; Wt 128.8 kg
[~2022-04-28 11:42] MED LIST changes: +NS 1,000 ML IV ONE
[2022-04-28] MEDS ORDERED: propofoL 200 MG/20 ML VIAL As Ordered ONE ×3 (13:59→14:36)
[2022-04-28] MEDS ORDERED: LIDOCAINE 2% 100MG/5ML SDV (FOR ANES.) As Ordered ONE (13:59)
[2022-04-28] MEDS ORDERED: fentaNYL 100 MCG/2 ML INJECTION As Ordered ONE (14:00)
[2022-04-28] MEDS ORDERED: ESMOLOL INJ 100MG/10ML VIAL As Ordered ONE (14:12)
[2022-04-28] MEDS ORDERED: PHENYLephrine 500MCG 5ML (100MCG/ML) SYRINGE As Ordered ONE (14:18)
[2022-04-28] MEDS ORDERED: LABETALOL 100MG/20ML VIAL As Ordered ONE (14:22)
[2022-04-28 15:05] VITALS: BP 162/85
== END 2022-04-28 15:45 | disposition home or self-care (01) ==
LOC: M OPP 11:42
PROVIDERS: ATTEND Internal Medicine Gastroenterology
DX: Z12.11 Encounter for screening for malignant neoplasm of colon (principal); D12.6 Benign neoplasm of colon, unspecified; K63.5 Polyp of colon; K64.4 Residual hemorrhoidal skin tags; K64.8 Other hemorrhoids; K29.70 Gastritis, unspecified, without bleeding; K31.89 Other diseases of stomach and duodenum; B96.81 Helicobacter pylori [H. pylori] as the cause of diseases classified elsewhere; K26.0 Acute duodenal ulcer with hemorrhage; D49.0 Neoplasm of unspecified behavior of digestive system; Z79.01 Long term (current) use of anticoagulants; Z79.02 Long term (current) use of antithrombotics/antiplatelets; Z79.899 Other long term (current) drug therapy; G47.30 Sleep apnea, unspecified; Z99.89 Dependence on other enabling machines and devices; I48.91 Unspecified atrial fibrillation; E78.00 Pure hypercholesterolemia, unspecified; A50.1 Early congenital syphilis, latent; E05.90 Thyrotoxicosis, unspecified without thyrotoxic crisis or storm; M19.90 Unspecified osteoarthritis, unspecified site; Z80.1 Family history of malignant neoplasm of trachea, bronchus and lung
CPT/HCPCS: 43239; 45385; 88305; J2370; J3010

== ENCOUNTER 2022-05-10 13:30 | Outpatient (RCR) | payer MEDICAID ==
[~2022-05-10 13:30] MED LIST changes: -NS 1,000 ML IV ONE
== END 2022-05-17 23:59 | disposition home or self-care (01) ==
LOC: M ST 13:30
PROVIDERS: ATTEND Student in an Organized Health Care Education/Training Program
DX: I63.89 Other cerebral infarction (principal); I69.928 Other speech and language deficits following unspecified cerebrovascular disease

== ENCOUNTER → 2022-05-19 | Outpatient (CLI) | payer MEDICAID, SELFPAY ==
[2022-05-19 14:49] LABS: THYROID STIMULATING HORMONE 0.008 uIU/ML (0.55-4.78)
[2022-05-19 14:51] LABS: FREE T4 1.31 NG/DL (0.89-1.76)
[2022-05-19 15:12] LABS: TOTAL T3 147.7 NG/DL (60.0-181.0)
== END ==
LOC: M WUC 10:24
PROVIDERS: ATTEND Internal Medicine
DX: E05.90 Thyrotoxicosis, unspecified without thyrotoxic crisis or storm (principal)

== ENCOUNTER 2022-06-15 09:27 | Outpatient (RCR) | payer MEDICAID, SELFPAY | END 2022-06-17 | LOC: M PT 09:27 → M ST 09:27 | PROVIDERS: ATTEND Student in an Organized Health Care Education/Training Program | DX: I63.89 Other cerebral infarction (principal); I69.928 Other speech and language deficits following unspecified cerebrovascular disease ==

== ENCOUNTER → 2022-06-15 | Outpatient (CLI) | payer MEDICAID, SELFPAY | LOC: M PLAIMG 12:50 | PROVIDERS: ATTEND Physician Assistant Surgical | DX: M75.42 Impingement syndrome of left shoulder (principal); Z53.9 Procedure and treatment not carried out, unspecified reason ==

== ENCOUNTER → 2022-07-06 | Outpatient (CLI) | payer SELFPAY ==
[~2022-07-06] MED LIST changes: +ISOVUE-300 61% 100ML VIAL As Ordered ONE; +LIDOCAINE 1% MDV 20ML VIAL As Ordered ONE
== END ==
LOC: M RAD 14:25
PROVIDERS: ATTEND Physician Assistant Surgical
DX: M94.212 Chondromalacia, left shoulder (principal); M75.42 Impingement syndrome of left shoulder

== ENCOUNTER 2022-07-27 14:30 | Outpatient (RCR) | payer MEDICAID, SELFPAY ==
[~2022-07-27 14:30] MED LIST changes: -ISOVUE-300 61% 100ML VIAL As Ordered ONE; -LIDOCAINE 1% MDV 20ML VIAL As Ordered ONE
== END 2022-08-15 ==
LOC: M ST 14:30
PROVIDERS: ATTEND Student in an Organized Health Care Education/Training Program
DX: I63.89 Other cerebral infarction (principal); I69.928 Other speech and language deficits following unspecified cerebrovascular disease

== ENCOUNTER → 2022-08-10 | Outpatient (CLI) | payer MEDICAID ==
[~2022-08-10] MED LIST changes: +LIDOCAINE 1% MDV 20ML VIAL As Ordered ONE; +methylPREDNISolone SUSP 40MG/ML 1ML VIAL (DEPO MEDROL) As Ordered ONE
== END ==
LOC: M IRPRO 13:14
PROVIDERS: ATTEND Physician Assistant Surgical
DX: M19.012 Primary osteoarthritis, left shoulder (principal); M75.42 Impingement syndrome of left shoulder
CPT/HCPCS: 20550; 76942; J1030

== ENCOUNTER → 2022-09-11 | Outpatient (CLI) | payer MEDICAID ==
[~2022-09-11] MED LIST changes: -LIDOCAINE 1% MDV 20ML VIAL As Ordered ONE; -methylPREDNISolone SUSP 40MG/ML 1ML VIAL (DEPO MEDROL) As Ordered ONE
[2022-09-11 16:45] LABS: FREE T4 1.05 NG/DL (0.89-1.76)
[2022-09-11 17:32] LABS: THYROID STIMULATING HORMONE 0.008 uIU/ML (0.55-4.78)
== END ==
LOC: M WUC 12:41
PROVIDERS: ATTEND Internal Medicine
DX: E05.90 Thyrotoxicosis, unspecified without thyrotoxic crisis or storm (principal)

== ENCOUNTER → 2022-09-18 | Outpatient (CLI) | payer MEDICAID ==
[~2022-09-18] MED LIST changes: +ISOVUE-300 61% 100ML VIAL As Ordered ONE; +LIDOCAINE 1% MDV 20ML VIAL As Ordered ONE; +methylPREDNISolone SUSP 40MG/ML 1ML VIAL (DEPO MEDROL) As Ordered ONE
== END ==
LOC: M RAD 14:04
PROVIDERS: ATTEND Physician Assistant Surgical
DX: M75.42 Impingement syndrome of left shoulder (principal)
CPT/HCPCS: 20610; 77002; J1030; Q9967

== ENCOUNTER 2022-09-23 02:41 | Emergency (ER) | payer MEDICAID, SELFPAY ==
[~2022-09-23] VITALS: Ht 170.2 cm; Wt 127.3 kg
[~2022-09-23 02:41] MED LIST changes: -ISOVUE-300 61% 100ML VIAL As Ordered ONE; -LIDOCAINE 1% MDV 20ML VIAL As Ordered ONE; -methylPREDNISolone SUSP 40MG/ML 1ML VIAL (DEPO MEDROL) As Ordered ONE
[2022-09-23 04:11] VITALS: BP 158/64
== END 2022-09-23 05:01 | disposition home or self-care (01) ==
LOC: M ED 02:41
DX: M76.32 Iliotibial band syndrome, left leg (principal); I10 Essential (primary) hypertension; E78.5 Hyperlipidemia, unspecified; K21.9 Gastro-esophageal reflux disease without esophagitis; Z79.899 Other long term (current) drug therapy

== ENCOUNTER → 2022-12-13 | Outpatient (CLI) | payer MEDICAID ==
[2022-12-13 17:40] LABS: FREE T4 0.85 NG/DL (0.89-1.76); THYROID STIMULATING HORMONE 0.01 uIU/ML (0.55-4.78)
== END ==
LOC: M WUC 14:26
PROVIDERS: ATTEND Internal Medicine
DX: E05.90 Thyrotoxicosis, unspecified without thyrotoxic crisis or storm (principal)

== ENCOUNTER → 2023-01-17 | Outpatient (CLI) | payer MEDICAID ==
[2023-01-17 17:31] LABS: FREE T4 0.84 NG/DL (0.89-1.76); THYROID STIMULATING HORMONE 0.211 uIU/ML (0.55-4.78)
== END ==
LOC: M WUC 11:55
PROVIDERS: ATTEND Internal Medicine
DX: E05.90 Thyrotoxicosis, unspecified without thyrotoxic crisis or storm (principal)

== ENCOUNTER → 2023-02-22 | Outpatient (CLI) | payer MEDICAID, OTHER ==
[2023-02-22 17:38] LABS: FREE T4 0.85 NG/DL (0.89-1.76); THYROID STIMULATING HORMONE 0.14 uIU/ML (0.55-4.78)
== END ==
LOC: M WUC 12:29
PROVIDERS: ATTEND Physician Assistant
DX: E05.90 Thyrotoxicosis, unspecified without thyrotoxic crisis or storm (principal)

== ENCOUNTER → 2023-04-16 | Outpatient (CLI) | payer MEDICAID, OTHER ==
[2023-04-16 12:52] LABS: APPEARANCE, URINE CLEAR (CLEAR); BACTERIA, URINE AUTO NEGATIVE (NEGATIVE); BILIRUBIN, URINE AUTO NEGATIVE (NEGATIVE); BLOOD, URINE BLOOD 1+ (NEGATIVE); COLOR, URINE YELLOW (YELLOW); GLUCOSE, URINE (UA) AUTO NEGATIVE (NEGATIVE); KETONE, URINE AUTO NEGATIVE (NEGATIVE); LEUKOCYTE ESTERASE, URINE AUTO 1+ (NEGATIVE); MUCUS, URINE SMALL (NEGATIVE); NITRITE, URINE AUTO NEGATIVE (NEGATIVE); PROTEIN, URINE AUTO NEGATIVE (NEGATIVE); RBC, URINE AUTO 2 /HPF (0-3); SQUAMOUS EPITHELIAL CELL UR AU 1 /HPF (0-6); WBC, URINE AUTO 3 /HPF (0-3)
[2023-04-16 13:09] LABS: BASO # 0.1 10^3/uL (0.0-0.2); BASO % 0.8 % (0.0-1.0); EOS # 0.1 10^3/uL (0.0-0.5); EOS % 1.9 % (0.0-3.0); HEMATOCRIT 45.4 % (42.0-52.0); HEMOGLOBIN 14.2 g/dl (13.5-17.5); LYMPH # 2.5 10^3/uL (1.5-5.0); LYMPH % 39.2 % (24.0-44.0); MEAN CORPUSCULAR HEMOGLOBIN 26.7 pg (27.0-33.0); MEAN CORPUSCULAR HGB CONC 31.3 g/dl (32.0-36.5); MEAN CORPUSCULAR VOLUME 85.5 fl (80.0-96.0); MONO # 0.5 10^3/uL (0.0-0.8); NEUTROPHILS # 3.1 10^3/uL (1.5-8.5); NEUTROPHILS % 49.3 % (36.0-66.0); PLATELET COUNT, AUTOMATED 204 10^3/uL (150-450); RED BLOOD COUNT 5.31 10^6/uL (4.30-6.10); WHITE BLOOD COUNT 6.3 10^3/uL (4.0-10.0)
[2023-04-16 13:45] LABS: ALBUMIN 3.6 G/DL (3.2-5.2); ALKALINE PHOSPHATASE 69 U/L (46-116); ALT/SGPT 43 U/L (7.0-40); AST/SGOT 17 U/L (<34); BILIRUBIN,TOTAL 0.6 MG/DL (0.3-1.2); BLOOD UREA NITROGEN 17 MG/DL (9-23); CALCIUM LEVEL 8.8 MG/DL (8.3-10.6); CARBON DIOXIDE LEVEL 28 MMOL/L (20-31); CHLORIDE LEVEL 103 MMOL/L (98-107); CHOLESTEROL LEVEL 130 MG/DL (<200); CHOLESTEROL RISK RATIO 2.28 (<5); FREE T4 0.93 NG/DL (0.89-1.76); GLOMERULAR FILTRATION RATE > 60.0 (>49); GLUCOSE, FASTING 96 MG/DL (74-106); LDL CHOLESTEROL 58.4 MG/DL (<100); POTASSIUM SERUM 4.2 MMOL/L (3.5-5.1); SODIUM LEVEL 141 MMOL/L (136-145); TOTAL PROTEIN 6.8 G/DL (5.7-8.2); TRIGLYCERIDES LEVEL 73 MG/DL (<150)
[2023-04-16 14:22] LABS: HEMOGLOBIN A1c 5.5 % (4.0-6.0)
== END ==
LOC: M WUC 10:32
PROVIDERS: ATTEND Family Medicine
DX: E05.90 Thyrotoxicosis, unspecified without thyrotoxic crisis or storm (principal); I48.91 Unspecified atrial fibrillation; K27.9 Peptic ulcer, site unspecified, unspecified as acute or chronic, without hemorrhage or perforation; I63.9 Cerebral infarction, unspecified

== ENCOUNTER → 2023-04-16 | Outpatient (CLI) | payer MEDICAID, OTHER ==
[2023-04-16 13:44] LABS: ALBUMIN 3.6 G/DL (3.2-5.2); ALKALINE PHOSPHATASE 70 U/L (46-116); ALT/SGPT 44 U/L (7.0-40); AST/SGOT 17 U/L (<34); BILIRUBIN,TOTAL 0.6 MG/DL (0.3-1.2); BLOOD UREA NITROGEN 18 MG/DL (9-23); CALCIUM LEVEL 8.9 MG/DL (8.3-10.6); CARBON DIOXIDE LEVEL 29 MMOL/L (20-31); CHLORIDE LEVEL 103 MMOL/L (98-107); CHOLESTEROL LEVEL 131 MG/DL (<200); CHOLESTEROL RISK RATIO 2.25 (<5); CREATININE FOR GFR 1.01 MG/DL (0.70-1.30); GLOMERULAR FILTRATION RATE > 60.0 (>49); GLUCOSE, FASTING 96 MG/DL (74-106); LDL CHOLESTEROL 58.4 MG/DL (<100); POTASSIUM SERUM 4.3 MMOL/L (3.5-5.1); SODIUM LEVEL 141 MMOL/L (136-145); THYROID STIMULATING HORMONE 0.445 uIU/ML (0.55-4.78); THYROXINE (T4) 12.2 UG/DL (4.5-10.9); TOTAL PROTEIN 6.8 G/DL (5.7-8.2); TRIGLYCERIDES LEVEL 73 MG/DL (<150)
== END ==
LOC: M WUC 10:38
DX: I69.30 Unspecified sequelae of cerebral infarction (principal); I63.9 Cerebral infarction, unspecified

== ENCOUNTER → 2023-12-27 | Outpatient (CLI) | payer MEDICAID ==
[~2023-12-27] MED LIST changes: -ASPI-161 PO; +ASPI-615 PO
== END ==
LOC: M RAD 13:20
PROVIDERS: ATTEND Family Medicine
DX: I51.7 Cardiomegaly (principal); R07.89 Other chest pain

== ENCOUNTER → 2024-03-28 | Outpatient (CLI) | payer MEDICARE, MEDICAID ==
[2024-03-28 12:53] LABS: BASO % 0.6 % (0.0-1.0); EOS # 0.1 10^3/uL (0.0-0.5); EOS % 1.7 % (0.0-3.0); HEMATOCRIT 44.6 % (42.0-52.0); HEMOGLOBIN 14.3 g/dl (13.5-17.5); LYMPH # 2.6 10^3/uL (1.5-5.0); LYMPH % 40.2 % (24.0-44.0); MEAN CORPUSCULAR HEMOGLOBIN 28.4 pg (27.0-33.0); MEAN CORPUSCULAR HGB CONC 32.1 g/dl (32.0-36.5); MEAN CORPUSCULAR VOLUME 88.5 fl (80.0-96.0); MONO # 0.6 10^3/uL (0.0-0.8); NEUTROPHILS # 3.1 10^3/uL (1.5-8.5); NEUTROPHILS % 47.9 % (36.0-66.0); PLATELET COUNT, AUTOMATED 180 10^3/uL (150-450); RED BLOOD COUNT 5.04 10^6/uL (4.30-6.10); WHITE BLOOD COUNT 6.5 10^3/uL (4.0-10.0)
[2024-03-28 12:54] LABS: APPEARANCE, URINE HAZY (CLEAR); BACTERIA, URINE AUTO NEGATIVE (NEGATIVE); BILIRUBIN, URINE AUTO NEGATIVE (NEGATIVE); BLOOD, URINE BLOOD 1+ (NEGATIVE); COLOR, URINE YELLOW (YELLOW); GLUCOSE, URINE (UA) AUTO NEGATIVE (NEGATIVE); KETONE, URINE AUTO NEGATIVE (NEGATIVE); LEUKOCYTE ESTERASE, URINE AUTO 1+ (NEGATIVE); MUCUS, URINE SMALL (NEGATIVE); NITRITE, URINE AUTO NEGATIVE (NEGATIVE); PROTEIN, URINE AUTO NEGATIVE (NEGATIVE); RBC, URINE AUTO 1 /HPF (0-3); SPECIFIC GRAVITY URINE AUTO 1.016 (1.002-1.035); SQUAMOUS EPITHELIAL CELL UR AU 1 /HPF (0-6); WBC, URINE AUTO 2 /HPF (0-3)
[2024-03-28 12:57] LABS: ALBUMIN 3.7 G/DL (3.2-5.2); ALKALINE PHOSPHATASE 52 U/L (46-116); ALT/SGPT 126 U/L (7.0-40); AST/SGOT 56 U/L (<34); BILIRUBIN,TOTAL 0.8 MG/DL (0.3-1.2); BLOOD UREA NITROGEN 10 MG/DL (9-23); CARBON DIOXIDE LEVEL 32 MMOL/L (20-31); CHLORIDE LEVEL 106 MMOL/L (98-107); CHOLESTEROL LEVEL 154 MG/DL (<200); CREATININE FOR GFR 0.88 MG/DL (0.70-1.30); GLOMERULAR FILTRATION RATE > 60.0 (>49); GLUCOSE, FASTING 118 MG/DL (74-106); HDL CHOLESTEROL 66.7 MG/DL (>40); LDL CHOLESTEROL 71.7 MG/DL (<100); NON-HDL-C 87.3 MG/DL; POTASSIUM SERUM 3.7 MMOL/L (3.5-5.1); SODIUM LEVEL 142 MMOL/L (136-145); TOTAL PROTEIN 7.1 G/DL (5.7-8.2); TRIGLYCERIDES LEVEL 78 MG/DL (<150)
[2024-03-28 12:59] LABS: THYROID STIMULATING HORMONE 0.256 uIU/ML (0.55-4.78)
[2024-03-28 13:00] LABS: FREE T4 1.55 NG/DL (0.89-1.76)
== END ==
LOC: M WUC 09:55
PROVIDERS: ATTEND Family Medicine
DX: Z00.01 Encounter for general adult medical examination with abnormal findings (principal); K27.9 Peptic ulcer, site unspecified, unspecified as acute or chronic, without hemorrhage or perforation; E78.5 Hyperlipidemia, unspecified; I10 Essential (primary) hypertension

== ENCOUNTER 2024-06-06 10:11 | Emergency (ER) | payer MEDICARE, OTHER ==
[~2024-06-06] VITALS: Ht 167.6 cm; Wt 141.2 kg
[~2024-06-06 10:11] MED LIST changes: +METH-1386 PO; -METH25TAB PO
[2024-06-06 10:15] VITALS: BP 168/92; TEMP 96.8; O2SAT 97
[2024-06-06] MEDS: ACETAMINOPHEN 500 MG TAB PO ONE (11:50)
[2024-06-06] MEDS ORDERED: LIDO5DIS41 TOP (12:19)
== END 2024-06-06 12:29 | disposition home or self-care (01) ==
LOC: M ED 10:11
DX: S46.212A Strain of muscle, fascia and tendon of other parts of biceps, left arm, initial encounter (principal); X50.0XXA Overexertion from strenuous movement or load, initial encounter; F10.10 Alcohol abuse, uncomplicated; K25.4 Chronic or unspecified gastric ulcer with hemorrhage; Y92.009 Unspecified place in unspecified non-institutional (private) residence as the place of occurrence of the external cause; Y93.89 Activity, other specified; Y99.9 Unspecified external cause status; Z86.73 Personal history of transient ischemic attack (TIA), and cerebral infarction without residual deficits; Z79.01 Long term (current) use of anticoagulants; Z79.02 Long term (current) use of antithrombotics/antiplatelets; Z79.899 Other long term (current) drug therapy

== ENCOUNTER → 2024-06-16 | Outpatient (REF) | payer MEDICARE, MEDICAID ==
[~2024-06-16] MED LIST changes: +LIDO5DIS41 TOP
[2024-06-16 13:21] LABS: FREE T4 1.08 NG/DL (0.89-1.76); THYROID STIMULATING HORMONE 3.034 uIU/ML (0.55-4.78)
== END ==
LOC: M LABWUC 11:46
PROVIDERS: ATTEND Internal Medicine Endocrinology, Diabetes & Metabolism
DX: E89.0 Postprocedural hypothyroidism (principal)

== ENCOUNTER → 2024-09-25 | Outpatient (CLI) | payer MEDICARE ==
[2024-09-25 12:16] LABS: APPEARANCE, URINE CLOUDY (CLEAR); BACTERIA, URINE AUTO NEGATIVE (NEGATIVE); BILIRUBIN, URINE AUTO NEGATIVE (NEGATIVE); BLOOD, URINE BLOOD NEGATIVE (NEGATIVE); COLOR, URINE YELLOW (YELLOW); GLUCOSE, URINE (UA) AUTO NEGATIVE (NEGATIVE); KETONE, URINE AUTO NEGATIVE (NEGATIVE); LEUKOCYTE ESTERASE, URINE AUTO NEGATIVE (NEGATIVE); MUCUS, URINE LARGE (NEGATIVE); NITRITE, URINE AUTO NEGATIVE (NEGATIVE); PROTEIN, URINE AUTO NEGATIVE (NEGATIVE); RBC, URINE AUTO 2 /HPF (0-3); SPECIFIC GRAVITY URINE AUTO 1.024 (1.002-1.035); SQUAMOUS EPITHELIAL CELL UR AU 1 /HPF (0-6); WBC, URINE AUTO 5 /HPF (0-3)
[2024-09-25 12:21] LABS: BASO # 0.1 10^3/uL (0.0-0.2); BASO % 1.1 % (0.0-1.0); EOS # 0.2 10^3/uL (0.0-0.5); EOS % 3.1 % (0.0-3.0); HEMATOCRIT 46.1 % (42.0-52.0); HEMOGLOBIN 14.7 g/dl (13.5-17.5); LYMPH # 3.3 10^3/uL (1.5-5.0); LYMPH % 46.8 % (24.0-44.0); MEAN CORPUSCULAR HEMOGLOBIN 28.5 pg (27.0-33.0); MEAN CORPUSCULAR HGB CONC 31.9 g/dl (32.0-36.5); MEAN CORPUSCULAR VOLUME 89.3 fl (80.0-96.0); MONO # 0.6 10^3/uL (0.0-0.8); MONO % 8.3 % (2.0-8.0); NEUTROPHILS # 2.8 10^3/uL (1.5-8.5); NEUTROPHILS % 39.8 % (36.0-66.0); PLATELET COUNT, AUTOMATED 197 10^3/uL (150-450); RED BLOOD COUNT 5.16 10^6/uL (4.30-6.10)
[2024-09-25 12:58] LABS: ALBUMIN 3.7 G/DL (3.2-5.2); BILIRUBIN,TOTAL 0.9 MG/DL (0.3-1.2); CALCIUM LEVEL 8.8 MG/DL (8.3-10.6); CHOLESTEROL RISK RATIO 2.08 (<5); CREATININE FOR GFR 0.95 MG/DL (0.70-1.30); FREE T4 1.33 NG/DL (0.89-1.76); GLOMERULAR FILTRATION RATE 89.4 (>49); HDL CHOLESTEROL 77.6 MG/DL (>40); NON-HDL-C 84.4 MG/DL; POTASSIUM SERUM 4.1 MMOL/L (3.5-5.1); THYROID STIMULATING HORMONE 1.137 uIU/ML (0.55-4.78)
== END ==
LOC: M WUC 08:40
PROVIDERS: ATTEND Family Medicine
DX: E78.5 Hyperlipidemia, unspecified (principal)

== ENCOUNTER 2025-01-29 07:33 | Emergency (ER) | payer MEDICAID, MEDICARE ==
[~2025-01-29] VITALS: Ht 170.2 cm; Wt 137.0 kg
[~2025-01-29 07:33] MED LIST changes: -ATOR1TAB19; +ATOR1TAB19 PO; -GABA-1171; +GABA-1171 PO; +LIDO1ADH93 TOP; -LIDO5DIS41 TOP
[2025-01-29] MEDS ORDERED: LEVO75TA4 PO (07:49)
[2025-01-29] MEDS ORDERED: METF-838 PO (07:49)
[2025-01-29 08:27] LABS: BASO # 0.1 10^3/uL (0.0-0.2); BASO % 0.5 % (0.0-1.0); EOS # 0.1 10^3/uL (0.0-0.5); EOS % 0.6 % (0.0-3.0); LYMPH # 1.4 10^3/uL (1.5-5.0); LYMPH % 11.7 % (24.0-44.0); MONO # 1.1 10^3/uL (0.0-0.8); MONO % 8.7 % (2.0-8.0); NEUTROPHILS # 9.5 10^3/uL (1.5-8.5); NEUTROPHILS % 78.0 % (36.0-66.0); PLATELET COUNT, AUTOMATED 182 10^3/uL (150-450)
[2025-01-29] MEDS: ACETAMINOPHEN 500 MG TAB PO ONE (08:31)
[2025-01-29 08:46] LABS: ALT/SGPT 62 U/L (7.0-40); AST/SGOT 25 U/L (<34); C REACTIVE PROTEIN QUANTITATIV 7.45 MG/DL (<1.0); CALCIUM LEVEL 9.0 MG/DL (8.3-10.6); CARBON DIOXIDE LEVEL 24 MMOL/L (20-31); CHLORIDE LEVEL 104 MMOL/L (98-107); CREATININE FOR GFR 0.92 MG/DL (0.70-1.30); GLOMERULAR FILTRATION RATE > 90.0 (>49); POTASSIUM SERUM 3.9 MMOL/L (3.5-5.1); SODIUM LEVEL 140 MMOL/L (136-145)
[2025-01-29 08:47] LABS: INR 1.17
[2025-01-29 08:51] LABS: APPEARANCE, URINE HAZY (CLEAR); BACTERIA, URINE AUTO NEGATIVE (NEGATIVE); BILIRUBIN, URINE AUTO NEGATIVE (NEGATIVE); BLOOD, URINE BLOOD 3+ (NEGATIVE); GLUCOSE, URINE (UA) AUTO NEGATIVE (NEGATIVE); KETONE, URINE AUTO TRACE mg/dL (NEGATIVE); LEUKOCYTE ESTERASE, URINE AUTO 3+ (NEGATIVE); MUCUS, URINE SMALL (NEGATIVE); NITRITE, URINE AUTO NEGATIVE (NEGATIVE); PROTEIN, URINE AUTO NEGATIVE (NEGATIVE); RBC, URINE AUTO 53 /HPF (0-3); SPECIFIC GRAVITY URINE AUTO 1.015 (1.002-1.035); SQUAMOUS EPITHELIAL CELL UR AU 0 /HPF (0-6); UROBILINOGEN, URINE AUTO 4.0 mg/dL (0.0-2.0); WBC, URINE AUTO 108 /HPF (0-3)
[2025-01-29] MEDS: NS (Normal Saline) 0.9% 1,000 ML IV ONE (08:52)
[2025-01-29 09:01] LABS: FREE T4 1.30 NG/DL (0.89-1.76)
[2025-01-29] MEDS ORDERED: PANT-23 PO (09:17)
[2025-01-29] MEDS ORDERED: HOME MED LIST COMPLETE! XX SCH (09:20)
[2025-01-29] MEDS ORDERED: ISOVUE-370 76% 100 ML VIAL As Ordered ONE (11:01)
[2025-01-29 14:24] VITALS: BP 168/90; TEMP 100.5; O2SAT 99
== END 2025-01-29 14:35 | disposition home or self-care (01) ==
LOC: M ED 07:33
DX: R19.7 Diarrhea, unspecified (principal); B34.9 Viral infection, unspecified; R00.0 Tachycardia, unspecified; R16.2 Hepatomegaly with splenomegaly, not elsewhere classified; I48.91 Unspecified atrial fibrillation; I10 Essential (primary) hypertension; E78.5 Hyperlipidemia, unspecified; Z79.01 Long term (current) use of anticoagulants; Z79.899 Other long term (current) drug therapy; Z79.84 Long term (current) use of oral hypoglycemic drugs; Z79.810 Long term (current) use of selective estrogen receptor modulators (SERMs)
CPT/HCPCS: 36415; 71045; 74177; 80048; 80076; 81001; 82150; 83605; 84145; 84439; 84443; 85025; 85610; 85730; 86140; 86850; 86900; 86901; 87040; 87088; 87186; 87486; 87581; 87633; 87798; 93005; 93041; 94760; 99285; Q9967

== ENCOUNTER → 2025-02-26 | Outpatient (CLI) | payer MEDICARE ==
[~2025-02-26] MED LIST changes: +LEVO75TA4 PO; +METF-838 PO; +PANT-23 PO
[2025-02-26 15:41] LABS: ALT/SGPT 75 U/L (7.0-40); AST/SGOT 39 U/L (<34); CALCIUM LEVEL 9.0 MG/DL (8.3-10.6); CARBON DIOXIDE LEVEL 28 MMOL/L (20-31); CHLORIDE LEVEL 106 MMOL/L (98-107); CHOLESTEROL LEVEL 149 MG/DL (<200); CHOLESTEROL RISK RATIO 2.35 (<5); CREATININE FOR GFR 0.92 MG/DL (0.70-1.30); GLOMERULAR FILTRATION RATE > 90.0 (>49); LDL CHOLESTEROL 61.4 MG/DL (<100); NON-HDL-C 85.6 MG/DL; POTASSIUM SERUM 3.7 MMOL/L (3.5-5.1); SODIUM LEVEL 147 MMOL/L (136-145); TRIGLYCERIDES LEVEL 121 MG/DL (<150)
== END ==
LOC: M WUC 12:22
PROVIDERS: ATTEND Internal Medicine
DX: E89.0 Postprocedural hypothyroidism (principal); E66.01 Morbid (severe) obesity due to excess calories; Z68.43 Body mass index [BMI] 50.0-59.9, adult

== ENCOUNTER 2025-05-12 08:00 | Day surgery (SDC) | payer MEDICARE ==
[~2025-05-12] VITALS: Ht 170.2 cm; Wt 137.9 kg
[2025-05-12] MEDS ORDERED: LIDOCAINE 2% 100 MG/5 ML SDV (FOR ANES.) As Ordered ONE (08:47)
[2025-05-12 10:00] VITALS: TEMP 97.5
[2025-05-12 10:15] VITALS: BP 128/59; O2SAT 98
== END 2025-05-12 10:38 | disposition home or self-care (01) ==
LOC: M OPP 08:00
PROVIDERS: ATTEND Internal Medicine Gastroenterology
DX: D12.4 Benign neoplasm of descending colon (principal); K57.30 Diverticulosis of large intestine without perforation or abscess without bleeding; K64.8 Other hemorrhoids; Z86.0100 Personal history of colon polyps, unspecified; G47.30 Sleep apnea, unspecified; Z86.73 Personal history of transient ischemic attack (TIA), and cerebral infarction without residual deficits; I48.91 Unspecified atrial fibrillation; Z79.01 Long term (current) use of anticoagulants; Z79.84 Long term (current) use of oral hypoglycemic drugs; Z79.899 Other long term (current) drug therapy; E66.01 Morbid (severe) obesity due to excess calories; Z87.891 Personal history of nicotine dependence